=== PATIENT | male | born 1945 | race Caucasian/White ===

== ENCOUNTER → 2020-10-15 12:00 | Outpatient (CLI) | payer MEDICARE, SELFPAY ==
--- NOTE | 2020-10-15 12:05 | DI.RAD.S_ITS ---
PROCEDURE: XR CHEST 2V INDICATIONS: fall 2wk ago, R sided chest wall pain TECHNIQUE: 2 views of the chest were acquired. COMPARISON: None. FINDINGS: Surgical changes and devices: None. Lungs and pleura: An incomplete inspiratory result is noted, causing a crowded appearance to the lung markings. No focal infiltrates are seen. No pneumothorax or significant pleural effusions are seen. Mediastinum: Mediastinal contours are normal. Heart size is normal. Bones and chest wall: No suspicious bony abnormalities. Age-appropriate bony degenerative changes are seen. Accentuated thoracic kyphosis is seen. No displaced fractures can be seen. Soft tissues appear unremarkable. IMPRESSION: No displaced fractures can be seen. No pneumothorax is seen. Dictated by: Francois Courtney M.D. on 10/15/2020 at 11:50 Approved by: Francois Courtney M.D. on 10/15/2020 at 11:51
== END ==
PROVIDERS: PCP Family Medicine; Referring Provider Physician Assistant; Visit Provider Physician Assistant
DX: R07.81 Pleurodynia (principal)
CPT/HCPCS: 71046

== ENCOUNTER → 2021-01-01 10:46 | Outpatient (CLI) | payer MEDICARE, SELFPAY ==
[2021-01-01 11:37] LABS: Add Manual Diff / Slide Review NO; Basophils Absolute Auto 0 /uL (0-100); Basophils Percent Auto 0.4 % (0-2); Eosinophils Absolute Auto 100 /uL (0-450); Eosinophils Percent Auto 1.4 % (2-4); Hematocrit 42.4 % (41-53); Hemoglobin 14.1 g/dL (13.5-17.5); Lymphocytes Absolute Auto 1200 /uL (1100-4500); Lymphocytes Percent Auto 25.9 % (25-40); Mean Corpuscular HGB Conc 33.2 % (30-36); Mean Corpuscular Hemoglobin 31.6 PG (26-34); Mean Corpuscular Volume 95.4 fL (80-100); Monocytes Absolute Auto 700 /uL (0-900); Monocytes Percent Auto 13.9 % (3-14); Neutrophils Absolute Auto 2800 /uL (1500-7000); Neutrophils Percent Auto 58.4 % (50-75); Platelet Count 155 X10^3/uL (150-400); Red Blood Cell Count 4.45 X10^6/uL (4.5-5.9); Red Cell Distribution Width 13.3 % (11.6-14.8); White Blood Cell Count 4.7 X10^3/uL (4.5-11.0)
[2021-01-01 12:25] LABS: Ferritin 21 ng/mL (18-464)
[2021-01-01 12:39] LABS: Vitamin B12 925 pg/mL (239-931)
== END ==
PROVIDERS: PCP Family Medicine; Referring Provider Internal Medicine; Visit Provider Internal Medicine
DX: D64.9 Anemia, unspecified (principal); E53.8 Deficiency of other specified B group vitamins
CPT/HCPCS: 36415; 82607; 82728; 85025

== ENCOUNTER → 2021-05-15 15:39 | Outpatient (CLI) | payer MEDICARE, SELFPAY ==
[2021-05-15 16:40] LABS: Blood Urea Nitrogen 15 mg/dL (9-20); Carbon Dioxide 35 mmol/L (22-32); Chloride 104 mmol/L (98-107); Sodium 139 mmol/L (137-145)
[2021-05-15 16:41] LABS: BUN Creatinine Ratio 19.7 (6-22); Calcium 9.4 mg/dL (8.4-10.2); Estimated Glomerular Filt Rate > 60.0 mL/min (>60); Glucose 103 mg/dL (80-110); HEMOLYSIS < 15 (0-50)
== END ==
PROVIDERS: PCP Family Medicine; Referring Provider Urology; Visit Provider Urology
DX: R31.21 Asymptomatic microscopic hematuria (principal); R39.9 Unspecified symptoms and signs involving the genitourinary system; Z77.22 Contact with and (suspected) exposure to environmental tobacco smoke (acute) (chronic)
CPT/HCPCS: 36415; 51798; 80048; 81002; 99214

== ENCOUNTER → 2021-05-28 13:46 | Outpatient (CLI) | payer MEDICARE, SELFPAY ==
--- NOTE | 2021-05-28 13:47 | DI.CT.S_ITS ---
PROCEDURE: CT ABDOMEN PELVIS WO/W CON INDICATIONS: Asymptomatic microscopic hematuria TECHNIQUE: Optional 5 mm thick noncontrast images acquired from the diaphragm to the symphysis pubis. After the administration of intravenous contrast, 5 mm thick images acquired from the diaphragm to the symphysis pubis after a 10-minute delay. 2 mm thick coronal and sagittal reformats were then performed of the kidneys and ureters. For radiation dose reduction, the following was used: automated exposure control, adjustment of mA and/or kV according to patient size. COMPARISON: None. FINDINGS: Image quality: Excellent. Lung bases: Lung bases are clear. Heart size is normal. Moderate coronary artery calcification. Urinary system: Both kidneys are normal in size, without hydronephrosis or nephrolithiasis on pre-contrast images. No perinephric fat stranding. There is normal bilateral renal enhancement. Renal calyces appear normal in morphology when filled with contrast. Opacified portions of both ureters demonstrate normal caliber. Bladder wall is thickened. There is a nodule in the left lateral wall of the bladder. No calcified bladder stones. Enlarged prostate. Other solid organs: Liver is normal in size and enhancement. Gallbladder is normal . Biliary system is non dilated. Pancreas enhances normally. Spleen is normal in size and enhancement. No adrenal nodules. Peritoneum and bowel: Bowel loops demonstrate normal wall thickness and caliber. Diverticulosis without diverticulitis. There is a moderate amount of stool in colon. No free fluid or air. Nodes and vessels: No retroperitoneal or mesenteric adenopathy by size criteria. Aorta and inferior vena cava are normal in size. Moderate atherosclerosis. Abdominal wall: No ventral hernias. Pelvis: No pathologic free pelvic fluid. No inguinal hernias or adenopathy. Bones: No suspicious bony lesions. No vertebral body compression fractures. IMPRESSION: 1. Bladder wall is irregular. There is a nodular density in the left lateral wall of the bladder. Cannot rule out a uroepithelial neoplasm. Recommend cystoscopy for follow-up evaluation. 2. Enlarged prostate. 3. Diverticulosis without diverticulitis. Dictated by: Kalen Paredes M.D. on 05/28/2021 at 16:50 Approved by: Kalen Paredes M.D. on 05/28/2021 at 16:54
== END ==
PROVIDERS: PCP Family Medicine; Referring Provider Urology; Visit Provider Urology
DX: R31.21 Asymptomatic microscopic hematuria (principal); N40.0 Benign prostatic hyperplasia without lower urinary tract symptoms; N32.9 Bladder disorder, unspecified; K57.90 Diverticulosis of intestine, part unspecified, without perforation or abscess without bleeding; Z77.22 Contact with and (suspected) exposure to environmental tobacco smoke (acute) (chronic)
CPT/HCPCS: 74178; Q9967

== ENCOUNTER → 2021-09-11 11:10 | Outpatient (CLI) | payer MEDICARE, SELFPAY ==
--- NOTE | 2021-09-11 11:12 | DI.RAD.S_ITS ---
PROCEDURE: XR CHEST 2V INDICATIONS: chronic cough TECHNIQUE: 2 views of the chest were acquired. COMPARISON: [facility], CR, XR CHEST 2V, 10/15/2020, 12:36. FINDINGS: Surgical changes and devices: None. Lungs and pleura: Coarsened interstitial markings. No consolidation, pleural effusions or pneumothorax. Mediastinum: Tortuosity of the aorta. Heart size is normal. Bones and chest wall: No suspicious bony abnormalities. Soft tissues appear unremarkable. IMPRESSION: No acute cardiopulmonary abnormality. Dictated by: Ghassan Costa M.D. on 09/11/2021 at 12:14 Approved by: Ghassan Costa M.D. on 09/11/2021 at 12:15
== END ==
PROVIDERS: PCP Family Medicine; Referring Provider Family Medicine; Visit Provider Family Medicine
DX: R05.8 Other specified cough (principal)
CPT/HCPCS: 71046

== ENCOUNTER → 2021-10-12 08:35 | Outpatient (CLI) | payer MEDICARE, SELFPAY ==
[2021-10-12 09:53] LABS: Microalbumin Urine Random < 0.6 mg/dL (0-1.6)
[2021-10-12 09:59] LABS: Add Manual Diff / Slide Review NO; Basophils Absolute Auto 0 /uL (0-100); Basophils Percent Auto 0.5 % (0-2); Eosinophils Absolute Auto 100 /uL (0-450); Eosinophils Percent Auto 1.8 % (2-4); Hematocrit 42.2 % (41-53); Hemoglobin 14.1 g/dL (13.5-17.5); Lymphocytes Absolute Auto 1100 /uL (1100-4500); Lymphocytes Percent Auto 27.3 % (25-40); Mean Corpuscular HGB Conc 33.3 % (30-36); Mean Corpuscular Hemoglobin 31.8 PG (26-34); Mean Corpuscular Volume 95.5 fL (80-100); Monocytes Absolute Auto 500 /uL (0-900); Monocytes Percent Auto 12.6 % (3-14); Neutrophils Absolute Auto 2300 /uL (1500-7000); Neutrophils Percent Auto 57.8 % (50-75); Platelet Count 145 X10^3/uL (150-400); Red Blood Cell Count 4.42 X10^6/uL (4.5-5.9); Red Cell Distribution Width 12.4 % (11.6-14.8); White Blood Cell Count 4.1 X10^3/uL (4.5-11.0)
[2021-10-12 10:19] LABS: Alanine Aminotransferase 27 IU/L (<50); Albumin Globulin Ratio 1.4 (1.0-2.8); Alkaline Phosphatase 53 U/L (38-126); Aspartate Aminotransferase 32 IU/L (17-59); BUN Creatinine Ratio 22.6 (6-22); Bilirubin Total 0.5 mg/dL (0.2-1.3); Blood Urea Nitrogen 19 mg/dL (9-20); Carbon Dioxide 32 mmol/L (22-32); Chloride 104 mmol/L (98-107); Cholesterol 147 mg/dL (140-199); Estimated Glomerular Filt Rate > 60 mL/min (>60); Globulin 2.8 g/dL (1.7-4.1); Glucose 94 mg/dL (80-110); HDL Cholesterol 71 mg/dL (40-60); HEMOLYSIS < 15 (0-50); LDL Cholesterol Calculated 67 mg/dL (<100); Potassium 4.7 mmol/L (3.4-5.1); Sodium 138 mmol/L (137-145); Total Protein 6.8 g/dL (6.3-8.2); Triglycerides 47 mg/dL (35-150)
[2021-10-12 10:40] LABS: TSH w/ Reflex to FT4 1.14 uIU/mL (0.47-4.68)
[2021-10-12 10:41] LABS: Prostate Specific Antigen Scrn 2.67 ng/mL (0.1-4.0)
[2021-10-12 10:59] LABS: Hep C Virus Ab w/Reflex Quant NEGATIVE s/c (NEGATIVE)
== END ==
PROVIDERS: Urology; PCP Family Medicine; Referring Provider Family Medicine; Visit Provider Family Medicine
DX: Z00.00 Encounter for general adult medical examination without abnormal findings (principal); E78.5 Hyperlipidemia, unspecified; Z12.5 Encounter for screening for malignant neoplasm of prostate; I10 Essential (primary) hypertension; K21.9 Gastro-esophageal reflux disease without esophagitis; Z11.59 Encounter for screening for other viral diseases
CPT/HCPCS: 36415; 80053; 80061; 82043; 82570; 84443; 85025; 86803; G0103

== ENCOUNTER → 2021-10-29 11:54 | Outpatient (CLI) | payer MEDICARE, SELFPAY ==
--- NOTE | 2021-10-29 11:55 | DI.RAD.S_ITS ---
PROCEDURE: XR FINGER RT MIN 2V INDICATIONS: Right pinky laceration, swelling TECHNIQUE: AP hand, 2 views of the to finger(s) acquired. COMPARISON: None. FINDINGS: Bones: No fractures or dislocations. No suspicious bony lesions. Fifth PIP joint is held in flexion in the 5th DIP joint is held in extension. Osteoarthritic degenerative changes noted in the 5th DIP joint. Soft tissues: No suspicious soft tissue calcifications. No radiodense foreign body or soft tissue gas. IMPRESSION: No fracture. No acute osseous lesion. If symptoms and/or clinical suspicion for pathology persists, further assessment with repeat radiographs (7-10 days) or advanced imaging (e.g. CT, MRI or bone scan) should be considered. Dictated by: Melania Bo MD, PhD on 10/29/2021 at 12:09 Approved by: Melania Bo MD, PhD on 10/29/2021 at 12:10
== END ==
PROVIDERS: PCP Family Medicine; Referring Provider Physician Assistant; Visit Provider Physician Assistant
DX: S61.216A Laceration without foreign body of right little finger without damage to nail, initial encounter (principal); X58.XXXA Exposure to other specified factors, initial encounter
CPT/HCPCS: 73140

== ENCOUNTER → 2022-02-07 12:17 | Outpatient (CLI) | payer MEDICARE, SELFPAY ==
[2022-02-07 14:19] LABS: Alanine Aminotransferase 28 IU/L (<50); Albumin Globulin Ratio 1.4 (1.0-2.8); Alkaline Phosphatase 53 U/L (38-126); Aspartate Aminotransferase 35 IU/L (17-59); Bilirubin Total 0.3 mg/dL (0.2-1.3); Blood Urea Nitrogen 16 mg/dL (9-20); Calcium 9.1 mg/dL (8.4-10.2); Carbon Dioxide 28 mmol/L (22-32); Chloride 101 mmol/L (98-107); Estimated Glomerular Filt Rate > 60 mL/min (>60); Globulin 2.8 g/dL (1.7-4.1); Glucose 106 mg/dL (80-110); HEMOLYSIS < 15 (0-50); Potassium 4.1 mmol/L (3.4-5.1); Sodium 138 mmol/L (137-145); Total Protein 6.8 g/dL (6.3-8.2)
[2022-02-07 14:56] LABS: Prostate Specific Antigen 3.11 ng/mL (0.10-4.00)
[2022-02-07 15:06] LABS: TSH w/ Reflex to FT4 1.08 uIU/mL (0.47-4.68)
== END ==
PROVIDERS: Urology; PCP Family Medicine; Referring Provider Family Medicine; Visit Provider Family Medicine
DX: R60.0 Localized edema (principal); R97.20 Elevated prostate specific antigen [PSA]; I83.813 Varicose veins of bilateral lower extremities with pain
CPT/HCPCS: 36415; 80053; 84153; 84443

== ENCOUNTER → 2022-02-22 14:30 | Outpatient (CLI) | payer MEDICARE, SELFPAY ==
--- NOTE | 2022-02-22 14:32 | DI.ECHO.S_ITS ---
[place] +---------+ [facility] +---------+ : : [address] : : : : [id number] : : : : Phone: [phone]+ Echocardiogram Report + + :Name: JOSH BURCIAGA Study Date: 02/22/2022 Height: 71 in : :[facility] ReadingLocation: Weight: 180 lb : : Gender: Male BSA: 2.0 m2 : :: 1945 Age: 77 yrs BP: 158/87 mmHg: :Reason For Study: edema : :Ordering Physician: NICOLÁS, : :ESEQUIEL Performed By: Aram Thurston : :Referring: ESEQUIEL MONZON : + + Interpretation Summary Sinus bradycardia during exam Hypertensive during exam The left ventricle is normal in size and wall thickness. The ejection fraction is estimated to be 55-60%. Diastolic parameters suggest a pseudonormalization pattern, consistent with probable elevated filling pressures. The left atrium is moderately dilated. There is mild mitral regurgitation. There is mild aortic regurgitation. There is mild tricuspid regurgitation. The right ventricular systolic pressure is estimated to be at least 32 mmHg based on an estimated right atrial pressure of 8 mm Hg. No prior study for comparison. Procedure: A two-dimensional transthoracic echocardiogram with color flow and Doppler was performed. The study quality was technically adequate. There is no prior echocardiogram noted for this patient. Sinus bradycardia during exam Hypertensive during exam. Left Ventricle: The left ventricle is normal in size and wall thickness. Left ventricular systolic function is normal. The ejection fraction is estimated to be 55-60%. There are no focal wall motion abnormalities. Diastolic parameters suggest a pseudonormalization pattern, consistent with probable elevated filling pressures. Right Ventricle: The right ventricle is normal in size and function. Atria: The left atrium is moderately dilated. Right atrial size is normal. The interatrial septum grossly appears intact with no obvious evidence for an atrial septal defect. The atrial septum is aneurysmal. Mitral Valve: The mitral valve is normal in structure and function. There is mild mitral regurgitation. Aortic Valve: The aortic valve is normal in structure and function. There is mild aortic regurgitation. Tricuspid Valve: The tricuspid valve is normal in structure and function. There is mild tricuspid regurgitation. The right ventricular systolic pressure is estimated to be at least 32 mmHg based on an estimated right atrial pressure of 8 mm Hg. Pulmonic Valve: The pulmonic valve is not well seen, but is grossly normal. There is mild pulmonic regurgitation. Great Vessels: The aortic root is normal size. The ascending aorta is at the upper limits of normal in size. The IVC is dilated (diameter is greater than 2.1 cm) yet it collapses greater than 50% with a sniff. This suggests a right atrial pressure of 8 mm Hg. Pericardium/ Pleura There is no pericardial effusion. There is no pleural effusion. MMode/2D Measurements & Calculations LVIDd: 5.6 cm LVOT diam: 2.3 cm LVIDs: 3.8 cm Ao root diam: 3.9 cm FS: 32.7 % asc Aorta Diam: 3.8 cm IVSd: 1.0 cm LVPWd: 0.84 cm LV ramirez. diameter/BSA (cm/m^2): 2.8 LV sys. diameter/BSA (cm/m^2): 1.9 LA A2 area: 25.3 cm2 RA long axis: 5.5 cm LA A4 area: 27.3 cm2 RA area: 16.6 cm2 LA length (vol): 6.1 cm RA vol: 42.2 ml LA vol: 96.2 ml RA : 20.9 ml/m2 LA vol index: 47.7 ml/m2 IVC diam: 2.3 cm TAPSE: 3.3 cm Doppler Measurements & Calculations Ao V2 max: 159.5 cm/sec LVOT Max Jesus: 119.5 cm/sec Ao V2 mean: 115.6 cm/sec LV V1 max P.7 mmHg Ao max P.2 mmHg LV V1 VTI: 24.5 cm Ao mean P.8 mmHg JEANNIE(I,D): 2.7 cm2 Ao V2 VTI: 37.6 cm JEANNIE(V,D): 3.1 cm2 sev ratio: 0.65 JEANNIE indexed to BSA (cm^2/m^2): 1.3 AI P1/2t: 826.2 msec AI dec slope: 160.0 cm/sec2 MV E max jesus: 82.1 cm/sec TR max jesus: 242.9 cm/sec MV A max jesus: 78.6 cm/sec TR max P.6 mmHg MV E/A: 1.0 Med Peak E' Jesus: 6.8 cm/sec E/E' med: 12.0 Lat Peak E' Jesus: 7.5 cm/sec E/E' lat: 11.0 E/e' average: 11.5 MV dec time: 0.20 sec SV(LVOT): 99.9 ml Reading Physician:GIANNA
== END ==
PROVIDERS: PCP Family Medicine; Referring Provider Family Medicine; Visit Provider Family Medicine
DX: I77.1 Stricture of artery (principal); R60.0 Localized edema; I08.3 Combined rheumatic disorders of mitral, aortic and tricuspid valves
CPT/HCPCS: 93306

== ENCOUNTER → 2022-02-28 11:03 | Outpatient (CLI) | payer MEDICARE, SELFPAY ==
[2022-02-28 12:45] LABS: Add Manual Diff / Slide Review NO; Basophils Absolute Auto 0 /uL (0-100); Basophils Percent Auto 0.5 % (0-2); Eosinophils Absolute Auto 100 /uL (0-450); Eosinophils Percent Auto 1.7 % (2-4); Hematocrit 38.9 % (41-53); Hemoglobin 13.1 g/dL (13.5-17.5); Lymphocytes Absolute Auto 1200 /uL (1100-4500); Lymphocytes Percent Auto 24.8 % (25-40); Mean Corpuscular HGB Conc 33.6 % (30-36); Mean Corpuscular Hemoglobin 31.8 PG (26-34); Mean Corpuscular Volume 94.6 fL (80-100); Monocytes Absolute Auto 600 /uL (0-900); Monocytes Percent Auto 12.4 % (3-14); Neutrophils Absolute Auto 2900 /uL (1500-7000); Neutrophils Percent Auto 60.6 % (50-75); Platelet Count 169 X10^3/uL (150-400); Red Blood Cell Count 4.11 X10^6/uL (4.5-5.9); Red Cell Distribution Width 13.1 % (11.6-14.8); White Blood Cell Count 4.9 X10^3/uL (4.5-11.0)
== END ==
PROVIDERS: PCP Family Medicine; Referring Provider Family Medicine; Visit Provider Family Medicine
DX: D72.819 Decreased white blood cell count, unspecified (principal); R31.21 Asymptomatic microscopic hematuria; R33.9 Retention of urine, unspecified; Z77.22 Contact with and (suspected) exposure to environmental tobacco smoke (acute) (chronic)
CPT/HCPCS: 36415; 51798; 81002; 85025; 99213

== ENCOUNTER → 2022-03-26 10:44 | Outpatient (CLI) | payer MEDICARE, SELFPAY ==
[2022-03-26 11:39] LABS: Add Manual Diff / Slide Review NO; Basophils Absolute Auto 0 /uL (0-100); Basophils Percent Auto 0.5 % (0-2); Eosinophils Absolute Auto 100 /uL (0-450); Eosinophils Percent Auto 1.5 % (2-4); Hematocrit 38.6 % (41-53); Lymphocytes Absolute Auto 1400 /uL (1100-4500); Lymphocytes Percent Auto 28.5 % (25-40); Mean Corpuscular HGB Conc 33.7 % (30-36); Mean Corpuscular Hemoglobin 31.5 PG (26-34); Mean Corpuscular Volume 93.5 fL (80-100); Monocytes Absolute Auto 500 /uL (0-900); Monocytes Percent Auto 10.6 % (3-14); Neutrophils Absolute Auto 2900 /uL (1500-7000); Neutrophils Percent Auto 58.9 % (50-75); Platelet Count 146 X10^3/uL (150-400); Red Blood Cell Count 4.13 X10^6/uL (4.5-5.9); Red Cell Distribution Width 12.9 % (11.6-14.8)
[2022-03-26 12:59] LABS: Ferritin 13 ng/mL (18-464)
[2022-03-26 13:29] LABS: HEMOLYSIS < 15 (0-50); Iron 175 ug/dL (49-181)
[2022-03-26 13:42] LABS: Percent Iron Saturation 55 % (20-50); Total Iron Binding Capacity 319 ug/dL (261-462); Transferrin 244 mg/dL (206-381)
== END ==
PROVIDERS: PCP Family Medicine; Referring Provider Family Medicine; Visit Provider Family Medicine
DX: E61.1 Iron deficiency (principal); E78.5 Hyperlipidemia, unspecified; I10 Essential (primary) hypertension
CPT/HCPCS: 36415; 82728; 83540; 83550; 85025

== ENCOUNTER → 2023-01-17 10:47 | Outpatient (CLI) | payer MEDICARE, SELFPAY ==
--- NOTE | 2023-01-17 10:51 | DI.RAD.S_ITS ---
PROCEDURE: XR WRIST RT MIN 3V INDICATIONS: swelling/hardening to ulnar wrist TECHNIQUE: 4 views of the wrist were acquired. COMPARISON: None. FINDINGS: Bones: No fractures or dislocations. No suspicious bony lesions. Degenerative joint space loss, spurring, and subcortical cystic changes at the distal radioulnar joint and distal ulnar. Mild arthritic changes partially seen at the 1st MCP joint. Scaphoid view: Intact scaphoid. Soft tissues: No suspicious soft tissue calcifications. No chondrocalcinosis. IMPRESSION: 1. Asymmetric focal degenerative change at the distal radioulnar joint and distal ulna. Dictated by: Ambar Rosa M.D. on 01/17/2023 at 14:45 Approved by: Ambar Rosa M.D. on 01/17/2023 at 14:47
[2023-01-17 13:10] LABS: Creatinine Urine Random 25.4 mg/dL
[2023-01-17 13:20] LABS: Microalbumin Urine Random < 0.6 mg/dL (0-1.6)
[2023-01-17 13:52] LABS: Vitamin B12 939 pg/mL (239-931)
== END ==
PROVIDERS: PCP Family Medicine; Referring Provider Physician Assistant; Visit Provider Physician Assistant
DX: M25.431 Effusion, right wrist (principal); R29.898 Other symptoms and signs involving the musculoskeletal system; D50.9 Iron deficiency anemia, unspecified; E78.5 Hyperlipidemia, unspecified; I10 Essential (primary) hypertension; K21.9 Gastro-esophageal reflux disease without esophagitis
CPT/HCPCS: 36415; 73110; 82043; 82570; 82607

== ENCOUNTER 2023-01-21 11:45 | Day surgery (SDC) | payer MEDICARE, SELFPAY ==
--- NOTE | 2023-01-21 | PATH_ITS ---
[facility] Accession Number: [id number] No. of containers..01 Tissue . 01 Material submitted: . esophagus, E-G Junction - GE JUNCTION . 01 Diagnosis: Gastroesophageal Junction, Biopsy: Squamous epithelium with mild reactive features of reflux esophagitis. No glandular mucosa present for evaluation. Intraepithelial eosinophils are not increased. Negative for dysplasia or malignancy. MRV 01/24/2023 1549 Local . 01 Electronically signed: . Joao Muñoz MD, PhD, Pathologist NPI- [id number] . 01 Gross description: . GE JUNCTION: Received in formalin is multiple fragment(s) of zuñiga, soft tissue measuring 0.5 x 0.3 x 0.1 cm in aggregate submitted entirely in 1 cassette(s) /AAY 01/23/2023 0035 Local . 01 Pathologist provided ICD-10: K21.9 . 01 CPT . 685803 Specimen Comment: A courtesy copy of this report has been sent to [phone] Performed at: 01 [facility] [address] [place] [address], [place], [place] [id number] MD Rodo Kwan MD Phone: [phone]
[2023-01-21 12:03] VITALS: BP 151/80; PULSE 50; RESP 16; TEMP 36.3; O2SAT 100; BMI 24.4
[2023-01-21] MEDS: LACTATED RINGERS 1,000 ML 150 ML IV (12:25)
--- NOTE | 2023-01-21 12:38 | PM.HP.1 ---
History of Present Illness History of Present Illness Date Patient Seen: 01/21/23 Time Patient Seen: 12:38 Chief complaint: SDC Narrative: 77-year-old man history of Aguilar's esophagus and anemia who is here for surveillance EGD and colonoscopy. No family history of intestinal malignancy. Takes 81 mg of aspirin daily [facility] Medical History Achilles tendinitis Actinic keratosis Anemia Ankle fracture (~1967) Asymptomatic microscopic hematuria Barretts esophagus Benign prostatic hyperplasia Colon polyps Depression Diverticulosis Dry cough Dupuytren's contracture of hand (07/07/15) Exposure to secondhand smoke Gastric ulcer GERD (gastroesophageal reflux disease) Head injury due to trauma (~1964) Hyperlipidemia Hypertension Incomplete emptying of bladder IT band syndrome Jaw fracture (~1968) Lower extremity edema Lower urinary tract symptoms Plantar warts Psoriasis Skin cancer Tear of meniscus of right knee (07/06/12) Tinnitus 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 with pain Surgical History H/O arthroscopy of left knee (11/27/84) H/O craniotomy (02/05/84) H/O inguinal hernia repair (~1968) H/O vasectomy (~1968) Family History Father Heart attack CAD (coronary artery disease) Mother Congestive heart failure CAD (coronary artery disease) High cholesterol Brother Stroke Brother Cancer Social History marital status: number of children: 2 household members: spouse lives independently: Yes caregiver/support person: No housing: house pets and animals: Yes education level: college occupational status: previously employed leisure activities: exercise, music and other seatbelt use: always helmet use: Yes water heater temp set < 120 deg: Yes working smoke detector in home: Yes fire extinguisher in home: Yes carbon monox detector in home: Yes firearms in home: Yes firearms unloaded and locked: Yes do you feel safe at home: Yes Smoking Status: Former smoker Tobacco: How many years used: 1 alcohol intake: current substance use type: does not use during the past year weight has: remained stable well-balanced diet: daily or most days daily servings fruits/ve-4 caffeine: Yes (~2 drinks daily ) eating out: rarely or never Type(s) of exercise: walking, bicycling and other frequency: daily duration: 30-45 minutes/day Meds Home Medications and Allergies Home Medications Medication Instructions Recorded Confirmed Type aspirin 81 mg tablet,delayed 81 mg PO DAILY 10/15/20 01/21/23 History release (Adult Low Dose Aspirin) calcium [calcium citrate] PO DAILY 05/15/21 01/16/23 History cyanocobalamin (vitamin B-12) PO DAILY 05/15/21 01/16/23 History ferrous sulfate, dried 160 mg (50 160 mg PO DAILY 05/15/21 01/16/23 History mg iron) tablet,extended release (Slow Release Iron) glucosamine sulfate [Glucosamine] PO DAILY 05/15/21 01/16/23 History coenzyme Q10 10 mg capsule (Co 100 mg PO DAILY 08/24/21 01/16/23 History Q-10) pantoprazole 40 mg tablet,delayed See Rx Instructions .Route 05/13/22 01/16/23 Rx release .COMPLEX #90 tabs valsartan 80 mg tablet 80 mg PO BID #180 tabs 05/28/22 01/21/23 Rx tamsulosin 0.4 mg capsule 0.4 mg PO DAILY #30 caps 08/28/22 01/21/23 Rx escitalopram oxalate 5 mg tablet See Rx Instructions .Route 09/09/22 01/16/23 Rx .COMPLEX #90 tabs rosuvastatin 20 mg tablet See Rx Instructions .Route 09/09/22 01/16/23 Rx .COMPLEX #90 tabs sodium,potassium,mag sulfates 17.5 See Rx Instructions PO .COMPLEX 12/10/22 01/21/23 Rx gram-3.13 gram-1.6 gram oral soln #354 mL (Suprep Bowel Prep Kit) Allergies Allergy/AdvReac Type Severity Reaction Status Date / Time NSAIDS (Non-Steroidal AdvReac Mild Stomach Verified 01/16/23 15:59 Anti-Inflamma upset Exam Vital Signs (past 8 hours): - 01/21/23 12:03 Temperature 97.4 F L Pulse Rate 50 L Respiratory Rate 16 Blood Pressure 151/80 H Pulse Oximetry 100 Oxygen Delivery Method Room Air Oxygen Delivery Method Room Air Narrative Exam Narrative: General adult male alert oriented no acute distress Abdomen soft nontender nondistended Assessment & Plan Assessment & Plan narrative: 77-year-old man history of Aguilar's esophagus here for screening esophagoduodenoscopy and colorectal screening. Technical details were discussed. Risks, benefits, alternatives explained. Risks including but not limited to myocardial infarction, aspiration, bleeding, pain, missed lesion, incomplete examination, need for further radiographic studies, colonic perforation, and need for major abdominal surgery were discussed. All questions were answered to their satisfaction, and they are in agreement with this plan.
[2023-01-21 13:19] VITALS: BP 102/63; PULSE 54; RESP 12; O2SAT 95
--- NOTE | 2023-01-21 13:21 | PM.OP.EC ---
Operative Date/Time/Diagnoses Date of procedure: 01/21/23 Time of procedure: 13:21 Pre-op diagnosis: History of Aguilar's esophagus Post-op diagnosis: same Procedure & Clinicians Study performed: Esophagoduodenoscopy and colonoscopy Same procedure as scheduled: Yes Indications: 77-year-old man here for screening colonoscopy and endoscopic screening history of Aguilar's. Surgeon: Nico Warren Procedure Notes Procedure in detail: The history and physical was performed/updated and the patient is ASA class is 2. The procedure was discussed in detail with the patient. Potential risks complications including infection, bleeding, missed diagnosis, perforation, need for surgery, and were explained. Their questions were answered and informed consent was obtained. Patient placed in left lateral decubitus position. Time out was performed. Procedural sedation was administered by Anesthesia. A bite block was placed. the scope was inserted into the mouth and advanced through the esophagus and into the stomach. The stomach was without masses, ulcers or gastritis. The pylorus was intubated and the duodenum was normal to the 2nd portion. The scope was retroflexed within the stomach and there was a hiatal hernia. The scope was withdrawn into the esophagus the Z line was seen at 40 cm from the incisions. There was no dayana Aguilar's esophagitis, esophageal masses or strictures. Biopsy of the GE junction was performed with forceps. Stomach was desufflated and scope removed. Examination began with a thorough inspection of the perianal area there was no evidence of fissures, fistulae, external hemorrhoids or cutaneous malignancy. The colonoscopy scope was then placed into the anal canal and was advanced to the cecum, which was identified by the ileocecal valve, the appendiceal orifice and the confluence of the taenia. The scope was then slowly withdrawn examining colon thoroughly in all directions, irrigating it of any residual stool. Normal colon, mild diverticulosis The patient tolerated the procedure well. They will be discharged once criteria are met. The prep was of good/excellent quality. The withdrawl time was 6 minutes. Specimen(s): other (GE junction) Impression: Normal colonoscopy and upper endoscopy Post-procedure Recommendations: Reflux diet Plan for aftercare: No need for further colonoscopy unless symptomatic Disposition: same day surgery
[2023-01-21 13:22] VITALS: BP 101/59; PULSE 57; RESP 13; TEMP 36.8; O2SAT 95
[2023-01-21 13:34] VITALS: BP 139/71; PULSE 58; RESP 10; O2SAT 100
[2023-01-21 13:39] VITALS: BP 143/78; PULSE 59; RESP 15; TEMP 36.1; O2SAT 97
== END 2023-01-21 14:04 | disposition home or self-care (01) ==
PROVIDERS: PCP Family Medicine; Referring Provider Surgery; Visit Provider Surgery
PROC: 0DJ08ZZ Inspection of Upper Intestinal Tract, Via Natural or Artificial Opening Endoscopic (ICD-10-PCS; CPT 43235; principal; 2023-01-21 12:45)
PROC: 0DJD8ZZ Inspection of Lower Intestinal Tract, Via Natural or Artificial Opening Endoscopic (ICD-10-PCS; CPT 45378; 2023-01-21 12:45)
DX: Z12.11 Encounter for screening for malignant neoplasm of colon (principal); Z87.19 Personal history of other diseases of the digestive system; K21.00 Gastro-esophageal reflux disease with esophagitis, without bleeding
CPT/HCPCS: 43239; G0121

== ENCOUNTER → 2023-04-18 11:59 | Outpatient (CLI) | payer MEDICARE, SELFPAY ==
--- NOTE | 2023-04-18 12:01 | DI.MRI.S_ITS ---
PROCEDURE: MR HEAD/BRAIN WO CON INDICATIONS: hx of brain surgery, bilateral leg weakness TECHNIQUE: Non-contrast axial T1 spin echo, axial T2 fast spin echo, sagittal and axial FLAIR, coronal T2 fast spin echo, axial gradient echo, axial diffusion and ADC through the brain. COMPARISON: None. FINDINGS: Image quality: Excellent. CSF spaces: Ventricles appear symmetric in size and shape. Basal cisterns are patent. No extra-axial fluid collections. Brain: Focal volume loss can be seen involving the anterior medial left frontal lobe. No intracranial bleeds or mass effects. There is cerebral volume loss for age. There are periventricular and deep white matter chronic small vessel ischemic changes. Brainstem appears normal. Diffusion-weighted images show no acute ischemic insults. No chronic ischemic insults. Normal intravascular flow voids are present. Skull and face: Postoperative change can be seen of the calvarium anteriorly. Calvarial bone marrow is normal in signal. Orbits are normal. Note is made of bilateral lens replacements. Sinuses: Extensive frontal sinus disease is seen. Along the superior lateral aspect of the right frontal sinus, there is potential encroachment into the cranial vault, yet this is not well seen. On these images, this area does appear to be covered by thin amount of bone. Mild mucosal thickening is seen elsewhere within the paranasal sinuses. There is at least moderate left mastoid air cell fluid seen. IMPRESSION: Prior postoperative change can be seen anteriorly, with craniotomy. There is focal volume loss seen involving the anterior medial left frontal lobe. The frontal sinuses demonstrate significant opacification. There is potential encroachment towards the cranial vault seen on the right superiorly and laterally. On these images, this does appear to be covered by small amount of bone. - If clinically appropriate, please consider a follow-up CT through the region. Note is made of age-appropriate brain parenchymal volume loss and chronic small vessel ischemic changes. No findings of acute or subacute infarction can be seen. Dictated by: Francois Courtney M.D. on 04/18/2023 at 13:28 Approved by: Francois Courtney M.D. on 04/18/2023 at 13:32
== END ==
PROVIDERS: PCP Family Medicine; Referring Provider Family Medicine; Visit Provider Family Medicine
DX: R29.898 Other symptoms and signs involving the musculoskeletal system (principal); J32.1 Chronic frontal sinusitis; Z87.820 Personal history of traumatic brain injury; Z98.890 Other specified postprocedural states
CPT/HCPCS: 70551

== ENCOUNTER → 2023-08-01 07:01 | Outpatient (CLI) | payer MEDICARE, SELFPAY ==
[2023-08-01 08:56] LABS: Add Manual Diff / Slide Review NO; Basophils Absolute Auto 0 /uL (0-100); Basophils Percent Auto 0.6 % (0-2); Eosinophils Absolute Auto 100 /uL (0-450); Eosinophils Percent Auto 1.9 % (2-4); Hematocrit 38.9 % (41-53); Hemoglobin 12.8 g/dL (13.5-17.5); Lymphocytes Absolute Auto 1000 /uL (1100-4500); Lymphocytes Percent Auto 24.1 % (25-40); Mean Corpuscular HGB Conc 32.9 % (30-36); Mean Corpuscular Hemoglobin 30.2 PG (26-34); Mean Corpuscular Volume 91.5 fL (80-100); Monocytes Absolute Auto 500 /uL (0-900); Monocytes Percent Auto 11.8 % (3-14); Neutrophils Absolute Auto 2500 /uL (1500-7000); Neutrophils Percent Auto 61.6 % (50-75); Platelet Count 155 X10^3/uL (150-400); Red Blood Cell Count 4.24 X10^6/uL (4.5-5.9)
[2023-08-01 09:12] LABS: Erythrocyte Sedimentation Rate 6 MM/HR (0-15)
[2023-08-01 09:21] LABS: Alanine Aminotransferase 23 IU/L (<50); Albumin 3.8 g/dL (3.5-5.0); Albumin Globulin Ratio 1.5 (1.0-2.8); Alkaline Phosphatase 57 U/L (38-126); Aspartate Aminotransferase 28 IU/L (17-59); BUN Creatinine Ratio 26.3 (6-22); Bilirubin Total 0.5 mg/dL (0.2-1.3); Blood Urea Nitrogen 20 mg/dL (9-20); C-Reactive Protein Quant < 0.5 mg/dL (<1.0); Calcium 9.4 mg/dL (8.4-10.2); Carbon Dioxide 33 mmol/L (22-32); Chloride 104 mmol/L (98-107); Cholesterol 140 mg/dL (140-199); Estimated Glomerular Filt Rate > 60 mL/min (>60); Globulin 2.5 g/dL (1.7-4.1); Glucose 90 mg/dL (80-110); HDL Cholesterol 68 mg/dL (40-60); HEMOLYSIS < 15 (0-50); LDL Cholesterol Calculated 63 mg/dL (<100); Potassium 4.5 mmol/L (3.4-5.1); Sodium 136 mmol/L (137-145); Total Protein 6.3 g/dL (6.3-8.2); Triglycerides 45 mg/dL (35-150)
[2023-08-01 09:22] LABS: HEMOLYSIS < 15 (0-50); Iron 91 ug/dL (49-181)
[2023-08-01 09:23] LABS: Rheumatoid Factor < 8.6 IU/mL (<12.0)
[2023-08-01 09:37] LABS: Percent Iron Saturation 28 % (20-50); Total Iron Binding Capacity 322 ug/dL (261-462); Transferrin 245 mg/dL (206-381)
[2023-08-01 09:47] LABS: TSH w/ Reflex to FT4 1.28 uIU/mL (0.47-4.68)
[2023-08-01 09:59] LABS: Ferritin 10 ng/mL (18-464)
[2023-08-02 08:15] LABS: Apolipoprotein B 61 mg/dL (<90)
== END ==
PROVIDERS: Physician Assistant; PCP Family Medicine; Referring Provider Family Medicine; Visit Provider Family Medicine
DX: Z00.00 Encounter for general adult medical examination without abnormal findings (principal); D50.9 Iron deficiency anemia, unspecified; E78.5 Hyperlipidemia, unspecified; Z12.5 Encounter for screening for malignant neoplasm of prostate; I10 Essential (primary) hypertension; K21.9 Gastro-esophageal reflux disease without esophagitis; M25.661 Stiffness of right knee, not elsewhere classified; M25.662 Stiffness of left knee, not elsewhere classified; H69.80 Other specified disorders of Eustachian tube, unspecified ear; R00.1 Bradycardia, unspecified; R53.83 Other fatigue
CPT/HCPCS: 36415; 80053; 80061; 82172; 82728; 83540; 83550; 84443; 85025; 85651; 86140; 86430; G0103

== ENCOUNTER → 2023-09-10 13:42 | Outpatient (CLI) | payer MEDICARE, SELFPAY | LOC: CAR 13:43 | PROVIDERS: PCP Family Medicine; Referring Provider Physician Assistant; Visit Provider Physician Assistant | DX: I49.9 Cardiac arrhythmia, unspecified (principal); R00.1 Bradycardia, unspecified | CPT/HCPCS: 93246 ==

== ENCOUNTER → 2023-12-23 07:03 | Outpatient (CLI) | payer MEDICARE, SELFPAY ==
[2023-12-23 08:02] LABS: Add Manual Diff / Slide Review NO; Basophils Absolute Auto 0 /uL (0-100); Basophils Percent Auto 0.7 % (0-2); Eosinophils Absolute Auto 100 /uL (0-450); Eosinophils Percent Auto 1.4 % (2-4); Hematocrit 41.8 % (41-53); Hemoglobin 13.9 g/dL (13.5-17.5); Lymphocytes Absolute Auto 1200 /uL (1100-4500); Lymphocytes Percent Auto 22.2 % (25-40); Mean Corpuscular HGB Conc 33.4 % (30-36); Mean Corpuscular Hemoglobin 31.1 PG (26-34); Mean Corpuscular Volume 93.1 fL (80-100); Monocytes Absolute Auto 500 /uL (0-900); Monocytes Percent Auto 9.3 % (3-14); Neutrophils Absolute Auto 3400 /uL (1500-7000); Neutrophils Percent Auto 66.4 % (50-75); Platelet Count 160 X10^3/uL (150-400); Red Blood Cell Count 4.49 X10^6/uL (4.5-5.9); Red Cell Distribution Width 13.4 % (11.6-14.8); White Blood Cell Count 5.2 X10^3/uL (4.5-11.0)
[2023-12-23 08:29] LABS: Lactate Dehydrogenase 185 U/L (120-246)
[2023-12-23 09:03] LABS: Prostate Specific Antigen 4.06 ng/mL (0.10-4.00)
== END ==
PROVIDERS: Family Provider Family Medicine; PCP Family Medicine; Referring Provider Family Medicine; Visit Provider Family Medicine
DX: N40.1 Benign prostatic hyperplasia with lower urinary tract symptoms (principal); R39.14 Feeling of incomplete bladder emptying; D50.9 Iron deficiency anemia, unspecified; Z94.81 Bone marrow transplant status; D72.819 Decreased white blood cell count, unspecified
CPT/HCPCS: 36415; 83615; 84153; 85025

== ENCOUNTER 2024-04-21 11:30 | Outpatient (RCR) | payer MEDICARE, SELFPAY ==
--- NOTE | 2024-01-12 17:27 | PT.OIE ---
Current Diagnoses Bilateral primary osteoarthritis of knee (01/12/24) Iliotibial band syndrome, right leg (01/12/24) Iliotibial band syndrome, left leg (01/12/24) Past Medical History (Last Reviewed 01/21/23 @ 12:40 by Nico Warren MD) Achilles tendinitis Actinic keratosis Anemia Ankle fracture (~1967) Asymptomatic microscopic hematuria Barretts esophagus Benign prostatic hyperplasia Colon polyps Depression Diverticulosis Dry cough Dupuytren's contracture of hand (07/07/15) Exposure to secondhand smoke Gastric ulcer GERD (gastroesophageal reflux disease) Head injury due to trauma (~1964) Hyperlipidemia Hypertension Incomplete emptying of bladder IT band syndrome Jaw fracture (~1968) Lower extremity edema Lower urinary tract symptoms Plantar warts Psoriasis Skin cancer Tear of meniscus of right knee (07/06/12) Tinnitus 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 with pain Past Surgical History (Last Reviewed 01/21/23 @ 12:40 by Nico Warren MD) H/O arthroscopy of left knee (11/27/84) H/O craniotomy (02/05/84) H/O inguinal hernia repair (~1968) H/O vasectomy (~1968) Visit Care Team Role Provider Type Maynor Esparza MD Family Provider Physician Primary Care Provider Specialty: Family Practice Address: [address] [place] [address] Email: [email or web address] Kathia Knott PA-C Attending Provider Advanced Marble And Granite Polisher Referring Provider Specialty: Medical Wound Care Address: [address] [place] [address], [facility] Email: [email or web address] Physical Therapy Initial Evaluation PT-OP-A Visit Information Start: 01/08/24 17:21 Freq: Status: Active Protocol: Document 01/12/24 14:36 [facility] (Rec: 01/12/24 15:20 [facility] [id number]) Out-Patient Physical Therapy Visit Information Visit Information Visit Type Initial Evaluation Visit Note 05/14 Visit Start Time 14:36 Visit Number 1 Number of ROLLER GOLD LEAF Visits 0 PT-OP-B Current Condition Start: 01/08/24 17:21 Freq: Status: Active Protocol: Document 01/12/24 14:36 [facility] (Rec: 01/12/24 15:20 [facility] [id number]) Current Condition History of Current Condition Onset Date a couple years Current Complaints B knee and cheung pain and quad pain. weakness History of Current Condition Pt reports significant lower leg pain from knees down. Notes really hard to get up from ground. Up/down stairs, is very weak and put in rails d/t this. it has been progressively getting worse. When goes to sit down on the toilet, almost falls onto the toilet, gets severe pain in inf quad region. Was on a standard height toilet the other day and was worried he couldn't get up. MOved here in the past couple years and no longer goes to gym. He walks about 1/2 mile in the Am but doesn't hink he could do a brisk walk anymore. He does do work on [employer] in house. Used to do yoga, but doens't think he can do enough bending of knee. does plan to try class starting at the end of jan. quick drinking alcohol and coffee and that improved heart palpatations. pt reports some arthritis in knees and meniscus wear down. denies burning, nubmness or tingling. Pt reports has back pain when first get up in the AM but generally, it goes away. only occ if he moves wrong he gets a little pain but it doesn't last. Pt rides his bike but only twice a week and just a mile to get into town. Uses an electric bike. does line dance 1x/week but has to be careful w/turning as it can make knees hurt. still gets 10k step a day around the house when doing work around house. Treatment Goals Patient/Caregiver Goals find exercise to help the best ; be able to get up/down from ground, find ways to dec pain; get back to longer walks, be able to go up/down hills PT-OP-C Subjective Start: 01/08/24 17:21 Freq: Status: Active Protocol: Document 01/12/24 14:36 [facility] (Rec: 01/12/24 15:20 [facility] [id number]) Patient Questionnaires Lower Extremity Functional Scale LEFS Score 35/80 OP-PT Pain Assessment Location lower legs Pain Location Details lat lower legs, superior knee/ distal quad, ant cheung & lat ankle Description With Movement Frequency Constant Pain Aggravating Factors Standing,Stair Climbing, Bending Other Pain Aggravating Factors get up from ground, turning, uphill/downhill, fast walk, stand up Other Pain Alleviating Factors stop the painful activity PT-OP-D Balance Start: 01/08/24 17:21 Freq: Status: Active Protocol: Document 01/12/24 14:36 [facility] (Rec: 01/12/24 15:20 [id number] Balance Tests Single Limb Standing Single Limb- Right 9 sec w/significant UE movement Single Limb- Left 7 sec w/significant UE movement PT-OP-E Functional Tests Start: 01/08/24 17:21 Freq: Status: Active Protocol: Document 01/12/24 14:36 [facility] (Rec: 01/12/24 15:20 [facility] [id number]) Functional Tests 30 Second Sit to Stand Test Score 11 Five Times Sit to Stand Test Score 13 sec PT-OP-G Mobility & Gait Start: 01/08/24 17:21 Freq: Status: Active Protocol: Document 01/12/24 14:36 [facility] (Rec: 01/12/24 15:20 [facility] [id number]) OP Gait Assessment Comments Gait Comments some add of LLE when amb, lat shear of hips when WB PT-OP-J Posture/Palpation/Skin Start: 01/08/24 17:21 Freq: Status: Active Protocol: Document 01/12/24 14:36 [facility] (Rec: 01/12/24 15:20 [id number] Posture Evaluation [facility] Postural Classification System [place] Postural Classifications Posterior/Anterior Lumbar Protective Mechanism Left AP 0 Lumbar Protective Mechanism Right AP 0 Lumbar Protective Mechanism Left PA 2 Lumbar Protective Mechanism Right PA 2 Comments Posture Comments B IR of tibia; L IR femur, inc kyphossi, eqaual greatertoch and iliac crests, R foot toes out at rest more PT-OP-K Range of Motion Start: 01/08/24 17:21 Freq: Status: Active Protocol: Document 01/12/24 14:36 [facility] (Rec: 01/12/24 15:20 [facility] [id number]) Knee Goniometric Range of Motion Knee Right Flexion Active (degrees) 130 Extension Active (degrees) 2 Comments discomfort in cheung w/flex Left Flexion Active (degrees) 134 Hyper-Extension Active 1 Ankle and Foot Goniometric Range of Motion Ankle and Foot ROM Limitations Comments Knee to wall: 2.25 in L 3.75 in R PT-OP-L Special Tests Start: 01/08/24 17:21 Freq: Status: Active Protocol: Document 01/12/24 14:36 [facility] (Rec: 01/12/24 15:20 [facility] [id number]) Special Tests Knee Special Tests Wale Comments B quad tightness ; notes ant thigh pain w/knee to chest SLR Comments WNL Slump Comments neg B PT-OP-M Strength Start: 01/08/24 17:21 Freq: Status: Active Protocol: Document 01/12/24 14:36 [facility] (Rec: 01/12/24 15:20 [facility] [id number]) Hip Strength Hip Manual Muscle Testing Right Flexion (L2) 3+ Fair+ Extension (S1) 3+ Fair+ Abduction 4- Good- Adduction 5 Normal External Rotation 3+ Fair+ Internal Rotation 4+ Good+ Left Flexion (L2) 3+ Fair+ Extension (S1) 4 Good Abduction 3+ Fair+ Adduction 4+ Good+ External Rotation 3+ Fair+ Internal Rotation 4+ Good+ Knee Strength Knee Manual Muscle Testing Right Flexion (S2) 4+ Good+ Extension (L3) 4+ Good+ Left Flexion (S2) 4+ Good+ Extension (L3) 4+ Good+ Ankle/Foot Strength Ankle and Foot Manual Muscle Testing Right Dorsiflexion (L4) 4+ Good+ Plantarflexion (S1) 5 Normal Inversion 4 Good Eversion (S1) 4 Good Left Dorsiflexion (L4) 4+ Good+ Plantarflexion (S1) 5 Normal Inversion 4 Good Eversion (S1) 4 Good Comments 20 heel raises B slightly dec range PT-OP-Q Treatments Start: 01/08/24 17:21 Freq: Status: Active Protocol: Document 01/12/24 14:36 [facility] (Rec: 01/12/24 15:20 [facility] [id number]) Self-Care/Home Management Treatment Education Other Education 8 min: PT-OP-T Assessment and Plan Start: 01/08/24 17:21 Freq: Status: Active Protocol: Document 01/12/24 14:36 [facility] (Rec: 01/12/24 15:20 [facility] [id number]) Physical Therapy Assessment Rehab Potential Rehabilitation Potential Good Evaluation Complexity Number of Personal Factors/Comorbidities 3 or More Number of Body Systems Impaired 4 or More Clinical Presentation at Evaluation Evolving Impairments Impairments Activity Tolerance,Balance, Functional Activities, Functional Mobility,Gait,Pain, Posture,ROM,Soft Tissue Mobility,Strength,Transfers Goals activities Short Term Goal (STG) Pt will be able to get up/down from ground w/o inc pain or significant difficulty STG Duration 02/20 Assistant Speech Language Pathologist Goal (LTG) Pt will be able to go for longer walks (>1.5 mile) that include hills w/o inc pain greater tahn 06/14 LTG Duration 03/23 balance Short Term Goal (STG) Pt will be able to do SLS for at least 10 sec B to show improved stability STG Duration 02/03 Senior Living Goal (LTG) Pt will be able to do SLS for at least 20 sec B to show improved stability LTG Duration 03/23 strength Short Term Goal (STG) Pt will be indep w/HEP STG Duration 02/06 Assistant Speech Language Pathologist Goal (LTG) Pt will score at least 3/5 LPM all planes and at least 4+/5 with all BLE MMT to show improved strength and stability to may daily activities easier LTG Duration 03/23 Assessment Summary Assessment Pt presents w/B knee/ant cheung pain and lower quad pain that has gotten worse over the past years including pt feeling inc weakness in LEs. Pt does have minor dec ROM w/B ankles and knee along w/B quad tightness which may be affecting pain, but does demonstrate ovearll dec balance and strength in LEs B along w/signifcant core weakness. He would benefit from skilled PT to address these deficits and return pt to more yoga and walking regime along w/improve pain during daily life. Physical Therapy Plan Frequency and Duration Frequency of Treatment 1-2x/wk Duration of treatment (weeks) 10 Plan of Care Start Date 01/13/24 Plan of Care End Date 03/23/24 Therapeutic Interventions Therapeutic Interventions Balance Training,Home Exercise Program,Joint Mobilizations, Manual Therapy,Neuromuscular Re-education,Patient/Caregiver Education,Self-Care/Home Management,Soft Tissue Mobilization,Taping, Therapeutic Activities, Therapeutic Exercises Modalities Cold Pack/Ice Massage,Electric Stimulation,Hot Packs, Infrared Therapy,Ultrasound Next Visit Focus/Plan Next Note Type Treatment Note Next Visit Plan review sit to stands (consider add band/wt), SLS; add: banded sidestep, DF against wall, tband inversion/eversion manual to ankle and knee joints in clinic resisted back walk, shuttle balance & futher balance work
--- NOTE | 2024-01-12 17:28 | PT.OPPOC ---
Physical, Occupational & Speech Therapy At [facility] Current Diagnoses Bilateral primary osteoarthritis of knee (01/12/24) Iliotibial band syndrome, right leg (01/12/24) Iliotibial band syndrome, left leg (01/12/24) Visit Care Team Role Provider Type Maynor Esparza MD Family Provider Physician Primary Care Provider Specialty: Family Practice Address: [address] [place] [address], [id number] Email: [email or web address] Kathia Knott PA-C Attending Provider Advanced Slicing Machine Tender Referring Provider Specialty: Medical Wound Care Address: [address] [place] [address], [id number] Email: [email or web address] Plan Of Care PT-OP-B Current Condition Start: 01/08/24 17:21 Freq: Status: Active Protocol: Document 01/12/24 14:36 [facility] (Rec: 01/12/24 15:20 [facility] [id number]) Current Condition History of Current Condition Onset Date a couple years Current Complaints B knee and cheung pain and quad pain. weakness History of Current Condition Pt reports significant lower leg pain from knees down. Notes really hard to get up from ground. Up/down stairs, is very weak and put in rails d/t this. it has been progressively getting worse. When goes to sit down on the toilet, almost falls onto the toilet, gets severe pain in inf quad region. Was on a standard height toilet the other day and was worried he couldn't get up. MOved here in the past couple years and no longer goes to gym. He walks about 1/2 mile in the Am but doesn't hink he could do a brisk walk anymore. He does do work on remodel in house. Used to do yoga, but doens't think he can do enough bending of knee. does plan to try class starting at the end of jan. quick drinking alcohol and coffee and that improved heart palpatations. pt reports some arthritis in knees and meniscus wear down. denies burning, nubmness or tingling. Pt reports has back pain when first get up in the AM but generally, it goes away. only occ if he moves wrong he gets a little pain but it doesn't last. Pt rides his bike but only twice a week and just a mile to get into town. Uses an electric bike. does line dance 1x/week but has to be careful w/turning as it can make knees hurt. still gets 10k step a day around the house when doing work around house. Treatment Goals Patient/Caregiver Goals find exercise to help the best ; be able to get up/down from ground, find ways to dec pain; get back to longer walks, be able to go up/down hills PT-OP-T Assessment and Plan Start: 01/08/24 17:21 Freq: Status: Active Protocol: Document 01/12/24 14:36 [facility] (Rec: 01/12/24 15:20 [facility] [id number]) Physical Therapy Assessment Rehab Potential Rehabilitation Potential Good Evaluation Complexity Number of Personal Factors/Comorbidities 3 or More Number of Body Systems Impaired 4 or More Clinical Presentation at Evaluation Evolving Impairments Impairments Activity Tolerance,Balance, Functional Activities, Functional Mobility,Gait,Pain, Posture,ROM,Soft Tissue Mobility,Strength,Transfers Goals activities Short Term Goal (STG) Pt will be able to get up/down from ground w/o inc pain or significant difficulty STG Duration 02/20 Solid Surface Fabricator Goal (LTG) Pt will be able to go for longer walks (>1.5 mile) that include hills w/o inc pain greater tahn 2/10 LTG Duration 03/23 balance Short Term Goal (STG) Pt will be able to do SLS for at least 10 sec B to show improved stability STG Duration 02/03 [facility] Goal (LTG) Pt will be able to do SLS for at least 20 sec B to show improved stability LTG Duration 03/23 strength Short Term Goal (STG) Pt will be indep w/HEP STG Duration 02/06 Solid Surface Fabricator Goal (LTG) Pt will score at least 3/5 LPM all planes and at least 4+/5 with all BLE MMT to show improved strength and stability to may daily activities easier LTG Duration 03/23 Assessment Summary Assessment Pt presents w/B knee/ant cheung pain and lower quad pain that has gotten worse over the past years including pt feeling inc weakness in LEs. Pt does have minor dec ROM w/B ankles and knee along w/B quad tightness which may be affecting pain, but does demonstrate ovearll dec balance and strength in LEs B along w/signifcant core weakness. He would benefit from skilled PT to address these deficits and return pt to more yoga and walking regime along w/improve pain during daily life. Physical Therapy Plan Frequency and Duration Frequency of Treatment 1-2x/wk Duration of treatment (weeks) 10 Plan of Care Start Date 01/13/24 Plan of Care End Date 03/23/24 Therapeutic Interventions Therapeutic Interventions Balance Training,Home Exercise Program,Joint Mobilizations, Manual Therapy,Neuromuscular Re-education,Patient/Caregiver Education,Self-Care/Home Management,Soft Tissue Mobilization,Taping, Therapeutic Activities, Therapeutic Exercises Modalities Cold Pack/Ice Massage,Electric Stimulation,Hot Packs, Infrared Therapy,Ultrasound Next Visit Focus/Plan Next Note Type Treatment Note Next Visit Plan review sit to stands (consider add band/wt), SLS; add: banded sidestep, DF against wall, tband inversion/eversion manual to ankle and knee joints in clinic resisted back walk, shuttle balance & futher balance work Plan of Care Dates Plan of Care Start Date 01/13/24 Plan of Care End Date 03/23/24 Electronically Signed by: Yanet Engel, PT 01/14/24 1460 If you are in agreement with this Plan of Care, please return a signed and dated copy. I have reviewed this Plan of Care and certify that the skilled therapy services above are required to meet the patient?s needs. Physician Signature Date Printed Name and Credentials Clinical Instructor Signature Printed Name and Credentials
--- NOTE | 2024-01-15 16:49 | PT.OTN ---
Current Diagnoses Bilateral primary osteoarthritis of knee (01/15/24) Iliotibial band syndrome, right leg (01/15/24) Iliotibial band syndrome, left leg (01/15/24) Physical Therapy Treatment Note PT-OP-A Visit Information Start: 01/08/24 17:21 Freq: Status: Active Protocol: Document 01/15/24 14:38 SW (Rec: 01/15/24 15:26 SW [id number]) Out-Patient Physical Therapy Visit Information Visit Information Visit Type Treatment Note Visit Note 06/14 Visit Start Time 14:33 Visit Number 2 Number of WOOD HACKER Visits 1 PT-OP-B Current Condition Start: 01/08/24 17:21 Freq: Status: Active Protocol: Document 01/12/24 14:36 [facility] (Rec: 01/12/24 15:20 [facility] [id number]) Current Condition History of Current Condition Onset Date a couple years Current Complaints B knee and cheung pain and quad pain. weakness History of Current Condition Pt reports significant lower leg pain from knees down. Notes really hard to get up from ground. Up/down stairs, is very weak and put in rails d/t this. it has been progressively getting worse. When goes to sit down on the toilet, almost falls onto the toilet, gets severe pain in inf quad region. Was on a standard height toilet the other day and was worried he couldn't get up. MOved here in the past couple years and no longer goes to gym. He walks about 1/2 mile in the Am but doesn't hink he could do a brisk walk anymore. He does do work on [employer] in house. Used to do yoga, but doens't think he can do enough bending of knee. does plan to try class starting at the end of jan. quick drinking alcohol and coffee and that improved heart palpatations. pt reports some arthritis in knees and meniscus wear down. denies burning, nubmness or tingling. Pt reports has back pain when first get up in the AM but generally, it goes away. only occ if he moves wrong he gets a little pain but it doesn't last. Pt rides his bike but only twice a week and just a mile to get into town. Uses an electric bike. does line dance 1x/week but has to be careful w/turning as it can make knees hurt. still gets 10k step a day around the house when doing work around house. Treatment Goals Patient/Caregiver Goals find exercise to help the best ; be able to get up/down from ground, find ways to dec pain; get back to longer walks, be able to go up/down hills PT-OP-C Subjective Start: 01/08/24 17:21 Freq: Status: Active Protocol: Document 01/15/24 14:38 SW (Rec: 01/15/24 15:26 SW [id number]) OP-PT Subjective Patient Comments Patient Comments Pt reports no new changes. Pt reports has done one of exercises from [facility], forgot the other one. PT-OP-D Balance Start: 01/08/24 17:21 Freq: Status: Active Protocol: Document 01/12/24 14:36 [facility] (Rec: 01/12/24 15:20 [facility] [id number]) Balance Tests Single Limb Standing Single Limb- Right 9 sec w/significant UE movement Single Limb- Left 7 sec w/significant UE movement PT-OP-E Functional Tests Start: 01/08/24 17:21 Freq: Status: Active Protocol: Document 01/12/24 14:36 [facility] (Rec: 01/12/24 15:20 [facility] [id number]) Functional Tests 30 Second Sit to Stand Test Score 11 Five Times Sit to Stand Test Score 13 sec PT-OP-G Mobility & Gait Start: 01/08/24 17:21 Freq: Status: Active Protocol: Document 01/12/24 14:36 [facility] (Rec: 01/12/24 15:20 [facility] [id number]) OP Gait Assessment Comments Gait Comments some add of LLE when amb, lat shear of hips when WB PT-OP-J Posture/Palpation/Skin Start: 01/08/24 17:21 Freq: Status: Active Protocol: Document 01/12/24 14:36 [facility] (Rec: 01/12/24 15:20 [facility] [id number]) Posture Evaluation [place] Postural Classification System [place] Postural Classifications Posterior/Anterior Lumbar Protective Mechanism Left AP 0 Lumbar Protective Mechanism Right AP 0 Lumbar Protective Mechanism Left PA 2 Lumbar Protective Mechanism Right PA 2 Comments Posture Comments B IR of tibia; L IR femur, inc kyphossi, eqaual greatertoch and iliac crests, R foot toes out at rest more PT-OP-K Range of Motion Start: 01/08/24 17:21 Freq: Status: Active Protocol: Document 01/12/24 14:36 [facility] (Rec: 01/12/24 15:20 [facility] [id number]) Knee Goniometric Range of Motion Knee Right Flexion Active (degrees) 130 Extension Active (degrees) 2 Comments discomfort in cheung w/flex Left Flexion Active (degrees) 134 Hyper-Extension Active 1 Ankle and Foot Goniometric Range of Motion Ankle and Foot ROM Limitations Comments Knee to wall: 2.25 in L 3.75 in R PT-OP-L Special Tests Start: 01/08/24 17:21 Freq: Status: Active Protocol: Document 01/12/24 14:36 [facility] (Rec: 01/12/24 15:20 [facility] [id number]) Special Tests Knee Special Tests Wale Comments B quad tightness ; notes ant thigh pain w/knee to chest SLR Comments WNL Slump Comments neg B PT-OP-M Strength Start: 01/08/24 17:21 Freq: Status: Active Protocol: Document 01/12/24 14:36 [facility] (Rec: 01/12/24 15:20 [facility] [id number]) Hip Strength Hip Manual Muscle Testing Right Flexion (L2) 3+ Fair+ Extension (S1) 3+ Fair+ Abduction 4- Good- Adduction 5 Normal External Rotation 3+ Fair+ Internal Rotation 4+ Good+ Left Flexion (L2) 3+ Fair+ Extension (S1) 4 Good Abduction 3+ Fair+ Adduction 4+ Good+ External Rotation 3+ Fair+ Internal Rotation 4+ Good+ Knee Strength Knee Manual Muscle Testing Right Flexion (S2) 4+ Good+ Extension (L3) 4+ Good+ Left Flexion (S2) 4+ Good+ Extension (L3) 4+ Good+ Ankle/Foot Strength Ankle and Foot Manual Muscle Testing Right Dorsiflexion (L4) 4+ Good+ Plantarflexion (S1) 5 Normal Inversion 4 Good Eversion (S1) 4 Good Left Dorsiflexion (L4) 4+ Good+ Plantarflexion (S1) 5 Normal Inversion 4 Good Eversion (S1) 4 Good Comments 20 heel raises B slightly dec range PT-OP-Q Treatments Start: 01/08/24 17:21 Freq: Status: Active Protocol: Document 01/15/24 14:38 (Rec: 01/15/24 15:26 [id number]) Gym Equipment Shuttle Balance Red clips Details Red clips Comments A/P, lateral balance, weight shift Therapeutic Exercises Sitting Exercises Ev/In Sitting Exercise Name Ankle Inversion/Eversion Comments Cues for hip compensation Standing Exercises Side Stepping Standing Exercise Name Resisted Ambulation Side bilateral Resistance Level 2 TB at ankles Equipment Used @ rail Reps/Minutes x 20 ft ea Comments pt reports mm fatigue, denies increase in pain STS Standing Exercise Name STS Side bilateral Resistance Lvl 2 band Equipment Used @ lowered plinth Reps/Minutes x10 w/out band 2x10 w/band Manual Therapy Treatment Consent Patient gave verbal consent for manual Yes treatment Soft Tissue Mobilization STM Body Location Quad, calf Mobilization Type Cross-Friction,Myofascial Release,Rolling,Sustained Pressure Intensity/Depth Moderate Body Position Hooklying Neuro Re-Education Treatment Balance Activities SLS Details SLS PT-OP-T Assessment and Plan Start: 01/08/24 17:21 Freq: Status: Active Protocol: Document 01/15/24 14:38 (Rec: 01/15/24 15:26 [id number]) Physical Therapy Assessment Goals activities Short Term Goal (STG) Pt will be able to get up/down from ground w/o inc pain or significant difficulty STG Duration 02/20 Wool Grader Goal (LTG) Pt will be able to go for longer walks (>1.5 mile) that include hills w/o inc pain greater tahn 2/10 LTG Duration 03/23 balance Short Term Goal (STG) Pt will be able to do SLS for at least 10 sec B to show improved stability STG Duration 02/03 Nursing Home Goal (LTG) Pt will be able to do SLS for at least 20 sec B to show improved stability LTG Duration 03/23 strength Short Term Goal (STG) Pt will be indep w/HEP STG Duration 02/06 Wool Grader Goal (LTG) Pt will score at least 3/5 LPM all planes and at least 4+/5 with all BLE MMT to show improved strength and stability to may daily activities easier LTG Duration 03/23 Assessment Summary Assessment Pt first visit post initital eval. Added bands to STS, pt tolerate well with good feedback. Extra time spent on therex this session for correct execution and pt education during exercises. Issued HEP with Handouts for carryover to home. Initiated balance in PT. Plan to followup on pt tolerance next session and progress as able. Physical Therapy Plan Frequency and Duration Frequency of Treatment 1-2x/wk Duration of treatment (weeks) 10 Plan of Care Start Date 01/13/24 Plan of Care End Date 03/23/24 Therapeutic Interventions Therapeutic Interventions Balance Training,Home Exercise Program,Joint Mobilizations, Manual Therapy,Neuromuscular Re-education,Patient/Caregiver Education,Self-Care/Home Management,Soft Tissue Mobilization,Taping, Therapeutic Activities, Therapeutic Exercises Modalities Cold Pack/Ice Massage,Electric Stimulation,Hot Packs, Infrared Therapy,Ultrasound Next Visit Focus/Plan Next Note Type Treatment Note Next Visit Plan review sit to stands (consider add band/wt), SLS; add: banded sidestep, DF against wall, tband inversion/eversion manual to ankle and knee joints in clinic resisted back walk, shuttle balance & futher balance work
--- NOTE | 2024-01-19 15:19 | PT.OTN ---
Current Diagnoses Bilateral primary osteoarthritis of knee (01/19/24) Iliotibial band syndrome, right leg (01/19/24) Iliotibial band syndrome, left leg (01/19/24) Physical Therapy Treatment Note PT-OP-A Visit Information Start: 01/08/24 17:21 Freq: Status: Active Protocol: Document 01/19/24 13:59 [facility] (Rec: 01/19/24 15:19 [facility] [id number]) Out-Patient Physical Therapy Visit Information Visit Information Visit Type Treatment Note Visit Note 07/12 Visit Start Time 14:31 Visit Stop Time 15:14 Visit Number 3 Number of RECORDS ADMINISTRATOR Visits 0 PT-OP-B Current Condition Start: 01/08/24 17:21 Freq: Status: Active Protocol: Document 01/12/24 14:36 [facility] (Rec: 01/12/24 15:20 [facility] [id number]) Current Condition History of Current Condition Onset Date a couple years Current Complaints B knee and cheung pain and quad pain. weakness History of Current Condition Pt reports significant lower leg pain from knees down. Notes really hard to get up from ground. Up/down stairs, is very weak and put in rails d/t this. it has been progressively getting worse. When goes to sit down on the toilet, almost falls onto the toilet, gets severe pain in inf quad region. Was on a standard height toilet the other day and was worried he couldn't get up. MOved here in the past couple years and no longer goes to gym. He walks about 1/2 mile in the Am but doesn't hink he could do a brisk walk anymore. He does do work on [employer] in house. Used to do yoga, but doens't think he can do enough bending of knee. does plan to try class starting at the end of jan. quick drinking alcohol and coffee and that improved heart palpatations. pt reports some arthritis in knees and meniscus wear down. denies burning, nubmness or tingling. Pt reports has back pain when first get up in the AM but generally, it goes away. only occ if he moves wrong he gets a little pain but it doesn't last. Pt rides his bike but only twice a week and just a mile to get into town. Uses an electric bike. does line dance 1x/week but has to be careful w/turning as it can make knees hurt. still gets 10k step a day around the house when doing work around house. Treatment Goals Patient/Caregiver Goals find exercise to help the best ; be able to get up/down from ground, find ways to dec pain; get back to longer walks, be able to go up/down hills PT-OP-C Subjective Start: 01/08/24 17:21 Freq: Status: Active Protocol: Document 01/19/24 13:59 [facility] (Rec: 01/19/24 15:19 [facility] [id number]) OP-PT Subjective Patient Comments Patient Comments Pt reports compliance w/HEP PT-OP-D Balance Start: 01/08/24 17:21 Freq: Status: Active Protocol: Document 01/12/24 14:36 [facility] (Rec: 01/12/24 15:20 [facility] [id number]) Balance Tests Single Limb Standing Single Limb- Right 9 sec w/significant UE movement Single Limb- Left 7 sec w/significant UE movement PT-OP-E Functional Tests Start: 01/08/24 17:21 Freq: Status: Active Protocol: Document 01/12/24 14:36 [facility] (Rec: 01/12/24 15:20 [facility] [id number]) Functional Tests 30 Second Sit to Stand Test Score 11 Five Times Sit to Stand Test Score 13 sec PT-OP-G Mobility & Gait Start: 01/08/24 17:21 Freq: Status: Active Protocol: Document 01/12/24 14:36 [facility] (Rec: 01/12/24 15:20 [facility] [id number]) OP Gait Assessment Comments Gait Comments some add of LLE when amb, lat shear of hips when WB PT-OP-J Posture/Palpation/Skin Start: 01/08/24 17:21 Freq: Status: Active Protocol: Document 01/12/24 14:36 [facility] (Rec: 01/12/24 15:20 [facility] [id number]) Posture Evaluation [place] Postural Classification System [place] Postural Classifications Posterior/Anterior Lumbar Protective Mechanism Left AP 0 Lumbar Protective Mechanism Right AP 0 Lumbar Protective Mechanism Left PA 2 Lumbar Protective Mechanism Right PA 2 Comments Posture Comments B IR of tibia; L IR femur, inc kyphossi, eqaual greatertoch and iliac crests, R foot toes out at rest more PT-OP-K Range of Motion Start: 01/08/24 17:21 Freq: Status: Active Protocol: Document 01/12/24 14:36 [facility] (Rec: 01/12/24 15:20 [facility] [id number]) Knee Goniometric Range of Motion Knee Right Flexion Active (degrees) 130 Extension Active (degrees) 2 Comments discomfort in cheung w/flex Left Flexion Active (degrees) 134 Hyper-Extension Active 1 Ankle and Foot Goniometric Range of Motion Ankle and Foot ROM Limitations Comments Knee to wall: 2.25 in L 3.75 in R PT-OP-L Special Tests Start: 01/08/24 17:21 Freq: Status: Active Protocol: Document 01/12/24 14:36 [facility] (Rec: 01/12/24 15:20 [facility] [id number]) Special Tests Knee Special Tests Wale Comments B quad tightness ; notes ant thigh pain w/knee to chest SLR Comments WNL Slump Comments neg B PT-OP-M Strength Start: 01/08/24 17:21 Freq: Status: Active Protocol: Document 01/12/24 14:36 [facility] (Rec: 01/12/24 15:20 [facility] [id number]) Hip Strength Hip Manual Muscle Testing Right Flexion (L2) 3+ Fair+ Extension (S1) 3+ Fair+ Abduction 4- Good- Adduction 5 Normal External Rotation 3+ Fair+ Internal Rotation 4+ Good+ Left Flexion (L2) 3+ Fair+ Extension (S1) 4 Good Abduction 3+ Fair+ Adduction 4+ Good+ External Rotation 3+ Fair+ Internal Rotation 4+ Good+ Knee Strength Knee Manual Muscle Testing Right Flexion (S2) 4+ Good+ Extension (L3) 4+ Good+ Left Flexion (S2) 4+ Good+ Extension (L3) 4+ Good+ Ankle/Foot Strength Ankle and Foot Manual Muscle Testing Right Dorsiflexion (L4) 4+ Good+ Plantarflexion (S1) 5 Normal Inversion 4 Good Eversion (S1) 4 Good Left Dorsiflexion (L4) 4+ Good+ Plantarflexion (S1) 5 Normal Inversion 4 Good Eversion (S1) 4 Good Comments 20 heel raises B slightly dec range PT-OP-Q Treatments Start: 01/08/24 17:21 Freq: Status: Active Protocol: Document 01/19/24 13:59 [facility] (Rec: 01/19/24 15:19 [facility] [id number]) Gym Equipment Shuttle Balance Red clips Comments fwd and side:WBOS, NBOS fwd: staggered stance B Therapeutic Exercises Sitting Exercises Ev/In Sitting Exercise Name Ankle Inversion/Eversion Side bilateral Equipment Used L2 Reps/Minutes 15 ea Standing Exercises DF Side bilateral Reps/Minutes 20 Comments back at wall Side Stepping Standing Exercise Name Resisted Ambulation Side bilateral Resistance Level 2 TB at ankles Equipment Used @ rail Reps/Minutes x 20 ft ea STS Standing Exercise Name STS Side bilateral Resistance Lvl 2 band Equipment Used at chair Reps/Minutes 15 w/band Manual Therapy Treatment Consent Patient gave verbal consent for manual Yes treatment Soft Tissue Mobilization ant tib Body Location B Mobilization Type Rolling Intensity/Depth Moderate Body Position Supine STM Body Location quad, ITB B Mobilization Type Myofascial Release,Rolling, Sustained Pressure Intensity/Depth Moderate Body Position Supine Neuro Re-Education Treatment Balance Activities tilt board Comments 1. squats w/facing fwd/back x12 2. squats w/facing lat x12 PT-OP-T Assessment and Plan Start: 01/08/24 17:21 Freq: Status: Active Protocol: Document 01/19/24 13:59 [facility] (Rec: 01/19/24 15:19 [facility] [id number]) Physical Therapy Assessment Goals activities Short Term Goal (STG) Pt will be able to get up/down from ground w/o inc pain or significant difficulty STG Duration 02/20 Ass[employer] Boat Coxswain Goal (LTG) Pt will be able to go for longer walks (>1.5 mile) that include hills w/o inc pain greater tahn 2/10 LTG Duration 03/23 balance Short Term Goal (STG) Pt will be able to do SLS for at least 10 sec B to show improved stability STG Duration 02/03 [facility]sp Goal (LTG) Pt will be able to do SLS for at least 20 sec B to show improved stability LTG Duration 03/23 strength Short Term Goal (STG) Pt will be indep w/HEP STG Duration 02/06 Usp Goal (LTG) Pt will score at least 3/5 LPM all planes and at least 4+/5 with all BLE MMT to show improved strength and stability to may daily activities easier LTG Duration 03/23 Assessment Summary Assessment Pt did well with exercises w/ min cues for form. Set up for inversion/eversion needed and challenged by balance board and squats on tilt board. Inc B ITB and quad and ant tib tension B. Physical Therapy Plan Frequency and Duration Frequency of Treatment 1-2x/wk Duration of treatment (weeks) 10 Plan of Care Start Date 01/13/24 Plan of Care End Date 03/23/24 Next Visit Focus/Plan Next Note Type Treatment Note Next Visit Plan advance balance, leg press, bosu exercises for strength/ balance; knee mobs/STM; consider kt tape
--- NOTE | 2024-01-22 16:20 | PT.OTN ---
Current Diagnoses Bilateral primary osteoarthritis of knee (01/22/24) Iliotibial band syndrome, right leg (01/22/24) Iliotibial band syndrome, left leg (01/22/24) Physical Therapy Treatment Note PT-OP-A Visit Information Start: 01/08/24 17:21 Freq: Status: Active Protocol: Document 01/22/24 12:57 AB (Rec: 01/22/24 16:20 AB [id number]) Out-Patient Physical Therapy Visit Information Visit Information Visit Type Treatment Note Visit Note 08/12 Visit Start Time 13:47 Visit Stop Time 14:31 Visit Number 4 Number of SPIN TANK TENDER Visits 1 PT-OP-B Current Condition Start: 01/08/24 17:21 Freq: Status: Active Protocol: Document 01/12/24 14:36 [facility] (Rec: 01/12/24 15:20 [facility] [id number]) Current Condition History of Current Condition Onset Date a couple years Current Complaints B knee and cheung pain and quad pain. weakness History of Current Condition Pt reports significant lower leg pain from knees down. Notes really hard to get up from ground. Up/down stairs, is very weak and put in rails d/t this. it has been progressively getting worse. When goes to sit down on the toilet, almost falls onto the toilet, gets severe pain in inf quad region. Was on a standard height toilet the other day and was worried he couldn't get up. MOved here in the past couple years and no longer goes to gym. He walks about 1/2 mile in the Am but doesn't hink he could do a brisk walk anymore. He does do work on [employer] in house. Used to do yoga, but doens't think he can do enough bending of knee. does plan to try class starting at the end of jan. quick drinking alcohol and coffee and that improved heart palpatations. pt reports some arthritis in knees and meniscus wear down. denies burning, nubmness or tingling. Pt reports has back pain when first get up in the AM but generally, it goes away. only occ if he moves wrong he gets a little pain but it doesn't last. Pt rides his bike but only twice a week and just a mile to get into town. Uses an electric bike. does line dance 1x/week but has to be careful w/turning as it can make knees hurt. still gets 10k step a day around the house when doing work around house. Treatment Goals Patient/Caregiver Goals find exercise to help the best ; be able to get up/down from ground, find ways to dec pain; get back to longer walks, be able to go up/down hills PT-OP-C Subjective Start: 01/08/24 17:21 Freq: Status: Active Protocol: Document 01/22/24 12:57 AB (Rec: 01/22/24 16:20 AB [id number]) OP-PT Subjective Patient Comments Patient Comments Patient the knees may be getting a little better, but it is small. Patient initates attempt to perform sit to tand without UE use from chair with multiple trials and increased effort to perform task to clear buttocks from chair and stand upright. PT-OP-D Balance Start: 01/08/24 17:21 Freq: Status: Active Protocol: Document 01/12/24 14:36 [facility] (Rec: 01/12/24 15:20 [facility] [id number]) Balance Tests Single Limb Standing Single Limb- Right 9 sec w/significant UE movement Single Limb- Left 7 sec w/significant UE movement PT-OP-E Functional Tests Start: 01/08/24 17:21 Freq: Status: Active Protocol: Document 01/12/24 14:36 [facility] (Rec: 01/12/24 15:20 [facility] [id number]) Functional Tests 30 Second Sit to Stand Test Score 11 Five Times Sit to Stand Test Score 13 sec PT-OP-G Mobility & Gait Start: 01/08/24 17:21 Freq: Status: Active Protocol: Document 01/12/24 14:36 [facility] (Rec: 01/12/24 15:20 [facility] [id number]) OP Gait Assessment Comments Gait Comments some add of LLE when amb, lat shear of hips when WB PT-OP-J Posture/Palpation/Skin Start: 01/08/24 17:21 Freq: Status: Active Protocol: Document 01/12/24 14:36 [facility] (Rec: 01/12/24 15:20 [facility] [id number]) Posture Evaluation [place] Postural Classification System [place] Postural Classifications Posterior/Anterior Lumbar Protective Mechanism Left AP 0 Lumbar Protective Mechanism Right AP 0 Lumbar Protective Mechanism Left PA 2 Lumbar Protective Mechanism Right PA 2 Comments Posture Comments B IR of tibia; L IR femur, inc kyphossi, eqaual greatertoch and iliac crests, R foot toes out at rest more PT-OP-K Range of Motion Start: 01/08/24 17:21 Freq: Status: Active Protocol: Document 01/12/24 14:36 [facility] (Rec: 01/12/24 15:20 [facility] [id number]) Knee Goniometric Range of Motion Knee Right Flexion Active (degrees) 130 Extension Active (degrees) 2 Comments discomfort in cheung w/flex Left Flexion Active (degrees) 134 Hyper-Extension Active 1 Ankle and Foot Goniometric Range of Motion Ankle and Foot ROM Limitations Comments Knee to wall: 2.25 in L 3.75 in R PT-OP-L Special Tests Start: 01/08/24 17:21 Freq: Status: Active Protocol: Document 01/12/24 14:36 [facility] (Rec: 01/12/24 15:20 [facility] [id number]) Special Tests Knee Special Tests Wale Comments B quad tightness ; notes ant thigh pain w/knee to chest SLR Comments WNL Slump Comments neg B PT-OP-M Strength Start: 01/08/24 17:21 Freq: Status: Active Protocol: Document 01/12/24 14:36 [facility] (Rec: 01/12/24 15:20 [facility] [id number]) Hip Strength Hip Manual Muscle Testing Right Flexion (L2) 3+ Fair+ Extension (S1) 3+ Fair+ Abduction 4- Good- Adduction 5 Normal External Rotation 3+ Fair+ Internal Rotation 4+ Good+ Left Flexion (L2) 3+ Fair+ Extension (S1) 4 Good Abduction 3+ Fair+ Adduction 4+ Good+ External Rotation 3+ Fair+ Internal Rotation 4+ Good+ Knee Strength Knee Manual Muscle Testing Right Flexion (S2) 4+ Good+ Extension (L3) 4+ Good+ Left Flexion (S2) 4+ Good+ Extension (L3) 4+ Good+ Ankle/Foot Strength Ankle and Foot Manual Muscle Testing Right Dorsiflexion (L4) 4+ Good+ Plantarflexion (S1) 5 Normal Inversion 4 Good Eversion (S1) 4 Good Left Dorsiflexion (L4) 4+ Good+ Plantarflexion (S1) 5 Normal Inversion 4 Good Eversion (S1) 4 Good Comments 20 heel raises B slightly dec range PT-OP-Q Treatments Start: 01/08/24 17:21 Freq: Status: Active Protocol: Document 01/22/24 12:57 AB (Rec: 01/22/24 16:20 AB [id number]) Therapeutic Exercises Supine Exercises hamstring stretch Supine Exercise Name HEP Side bilateral Reps/Minutes 60 sec X 2 each LE Sitting Exercises seated hip abduction with band Sitting Exercise Name HEP Side bilateral Resistance level 4 blue band Reps/Minutes one minute hold X 1 DF Sitting Exercise Name AROM HEP Side bilateral Reps/Minutes X15 Standing Exercises mini squat Standing Exercise Name HEP Reps/Minutes X10 X 3 Comments Pt ed self tactile cues with hip hinge Calf stretches Standing Exercise Name 1. on ISELA 2. (on stairs HEP) Reps/Minutes one minute each gastroc and soleus on each stretch Manual Therapy Treatment Soft Tissue Mobilization STM Body Location peripatellar area bilaterally and bilateral calf muscles Mobilization Type Cross-Friction,Myofascial Release,Rolling Intensity/Depth Moderate Body Position Supine Comments and prone Taping bilateral knees Treatment Focus unload fat pad bilaterally I peripatellar med andlat 50 % strch proximally Type of Tape kinesiotape Skin Inspection left knee also to improve tracking lat to med 20% Comments Patient ed to remove tape in 3 -5 days or immediately if skin irritation occurs. PT-OP-T Assessment and Plan Start: 01/08/24 17:21 Freq: Status: Active Protocol: Document 01/22/24 12:57 AB (Rec: 01/22/24 16:20 AB [id number]) Physical Therapy Assessment Goals activities Short Term Goal (STG) Pt will be able to get up/down from ground w/o inc pain or significant difficulty STG Duration 02/20 Care Home Goal (LTG) Pt will be able to go for longer walks (>1.5 mile) that include hills w/o inc pain greater tahn 2/10 LTG Duration 03/23 balance Short Term Goal (STG) Pt will be able to do SLS for at least 10 sec B to show improved stability STG Duration 02/03 Technical Intern Goal (LTG) Pt will be able to do SLS for at least 20 sec B to show improved stability LTG Duration 03/23 strength Short Term Goal (STG) Pt will be indep w/HEP STG Duration 02/06 Technical Intern Goal (LTG) Pt will score at least 3/5 LPM all planes and at least 4+/5 with all BLE MMT to show improved strength and stability to may daily activities easier LTG Duration 03/23 Assessment Summary Assessment Patient reports having no pain end of session. Good return demonstration for squat with hip hinge. Physical Therapy Plan Frequency and Duration Frequency of Treatment 1-2x/wk Duration of treatment (weeks) 10 Plan of Care Start Date 01/13/24 Plan of Care End Date 03/23/24 Next Visit Focus/Plan Next Note Type Treatment Note Next Visit Plan advance balance, leg press, bosu exercises for strength/ balance; knee mobs/STM; consider kt tape
--- NOTE | 2024-01-26 16:19 | PT.OTN ---
Current Diagnoses Bilateral primary osteoarthritis of knee (01/26/24) Iliotibial band syndrome, right leg (01/26/24) Iliotibial band syndrome, left leg (01/26/24) Physical Therapy Treatment Note PT-OP-A Visit Information Start: 01/08/24 17:21 Freq: Status: Active Protocol: Document 01/26/24 13:04 AB (Rec: 01/26/24 16:19 AB [id number]) Out-Patient Physical Therapy Visit Information Visit Information Visit Type Treatment Note Visit Note 09/11 Access Code [email or web address] Visit Start Time 13:47 Visit Stop Time 14:31 Visit Number 5 Number of MINING PLANT OPERATOR Visits 2 PT-OP-B Current Condition Start: 01/08/24 17:21 Freq: Status: Active Protocol: Document 01/12/24 14:36 [facility] (Rec: 01/12/24 15:20 [facility] [id number]) Current Condition History of Current Condition Onset Date a couple years Current Complaints B knee and cheung pain and quad pain. weakness History of Current Condition Pt reports significant lower leg pain from knees down. Notes really hard to get up from ground. Up/down stairs, is very weak and put in rails d/t this. it has been progressively getting worse. When goes to sit down on the toilet, almost falls onto the toilet, gets severe pain in inf quad region. Was on a standard height toilet the other day and was worried he couldn't get up. MOved here in the past couple years and no longer goes to gym. He walks about 1/2 mile in the Am but doesn't hink he could do a brisk walk anymore. He does do work on [employer] in house. Used to do yoga, but doens't think he can do enough bending of knee. does plan to try class starting at the end of jan. quick drinking alcohol and coffee and that improved heart palpatations. pt reports some arthritis in knees and meniscus wear down. denies burning, nubmness or tingling. Pt reports has back pain when first get up in the AM but generally, it goes away. only occ if he moves wrong he gets a little pain but it doesn't last. Pt rides his bike but only twice a week and just a mile to get into town. Uses an electric bike. does line dance 1x/week but has to be careful w/turning as it can make knees hurt. still gets 10k step a day around the house when doing work around house. Treatment Goals Patient/Caregiver Goals find exercise to help the best ; be able to get up/down from ground, find ways to dec pain; get back to longer walks, be able to go up/down hills PT-OP-C Subjective Start: 01/08/24 17:21 Freq: Status: Active Protocol: Document 01/26/24 13:04 AB (Rec: 01/26/24 16:19 AB [id number]) OP-PT Subjective Patient Comments Patient Comments Patient reports he only missed one day of the exercise. Patient reports pain post sit to stand after sitting for a while. Patient reports he isn' t sure if the tape helped. PT-OP-D Balance Start: 01/08/24 17:21 Freq: Status: Active Protocol: Document 01/12/24 14:36 [facility] (Rec: 01/12/24 15:20 [facility] [id number]) Balance Tests Single Limb Standing Single Limb- Right 9 sec w/significant UE movement Single Limb- Left 7 sec w/significant UE movement PT-OP-E Functional Tests Start: 01/08/24 17:21 Freq: Status: Active Protocol: Document 01/12/24 14:36 [facility] (Rec: 01/12/24 15:20 [facility] [id number]) Functional Tests 30 Second Sit to Stand Test Score 11 Five Times Sit to Stand Test Score 13 sec PT-OP-G Mobility & Gait Start: 01/08/24 17:21 Freq: Status: Active Protocol: Document 01/12/24 14:36 [facility] (Rec: 01/12/24 15:20 [facility] [id number]) OP Gait Assessment Comments Gait Comments some add of LLE when amb, lat shear of hips when WB PT-OP-J Posture/Palpation/Skin Start: 01/08/24 17:21 Freq: Status: Active Protocol: Document 01/12/24 14:36 [facility] (Rec: 01/12/24 15:20 [facility] [id number]) Posture Evaluation [place] Postural Classification System [place] Postural Classifications Posterior/Anterior Lumbar Protective Mechanism Left AP 0 Lumbar Protective Mechanism Right AP 0 Lumbar Protective Mechanism Left PA 2 Lumbar Protective Mechanism Right PA 2 Comments Posture Comments B IR of tibia; L IR femur, inc kyphossi, eqaual greatertoch and iliac crests, R foot toes out at rest more PT-OP-K Range of Motion Start: 01/08/24 17:21 Freq: Status: Active Protocol: Document 01/12/24 14:36 [facility] (Rec: 01/12/24 15:20 [facility] [id number]) Knee Goniometric Range of Motion Knee Right Flexion Active (degrees) 130 Extension Active (degrees) 2 Comments discomfort in cheung w/flex Left Flexion Active (degrees) 134 Hyper-Extension Active 1 Ankle and Foot Goniometric Range of Motion Ankle and Foot ROM Limitations Comments Knee to wall: 2.25 in L 3.75 in R PT-OP-L Special Tests Start: 01/08/24 17:21 Freq: Status: Active Protocol: Document 01/12/24 14:36 [facility] (Rec: 01/12/24 15:20 [facility] [id number]) Special Tests Knee Special Tests Wale Comments B quad tightness ; notes ant thigh pain w/knee to chest SLR Comments WNL Slump Comments neg B PT-OP-M Strength Start: 01/08/24 17:21 Freq: Status: Active Protocol: Document 01/12/24 14:36 [facility] (Rec: 01/12/24 15:20 [facility] [id number]) Hip Strength Hip Manual Muscle Testing Right Flexion (L2) 3+ Fair+ Extension (S1) 3+ Fair+ Abduction 4- Good- Adduction 5 Normal External Rotation 3+ Fair+ Internal Rotation 4+ Good+ Left Flexion (L2) 3+ Fair+ Extension (S1) 4 Good Abduction 3+ Fair+ Adduction 4+ Good+ External Rotation 3+ Fair+ Internal Rotation 4+ Good+ Knee Strength Knee Manual Muscle Testing Right Flexion (S2) 4+ Good+ Extension (L3) 4+ Good+ Left Flexion (S2) 4+ Good+ Extension (L3) 4+ Good+ Ankle/Foot Strength Ankle and Foot Manual Muscle Testing Right Dorsiflexion (L4) 4+ Good+ Plantarflexion (S1) 5 Normal Inversion 4 Good Eversion (S1) 4 Good Left Dorsiflexion (L4) 4+ Good+ Plantarflexion (S1) 5 Normal Inversion 4 Good Eversion (S1) 4 Good Comments 20 heel raises B slightly dec range PT-OP-Q Treatments Start: 01/08/24 17:21 Freq: Status: Active Protocol: Document 01/26/24 13:04 AB (Rec: 01/26/24 16:19 AB [id number]) Gym Equipment Shuttle Recovery unilateral Details 37# Reps/Time 1X15 each LE bilateral Resistance 75# Reps/Time 2X15 Therapeutic Exercises Supine Exercises hamstring stretch Supine Exercise Name HEP Side bilateral Reps/Minutes 60 sec X 1 each LE Sidelying Exercises clamshell Sidelying Exercise Name HEP Side bilateral Resistance level 2 band Reps/Minutes X15 X 2 Comments Verbal cues and tactile cues Sitting Exercises seated hip abduction with band Sitting Exercise Name HEP Side bilateral Resistance level 5 blue band ( band 5 to HEP Reps/Minutes one minute hold X 1 Standing Exercises Calf stretches Standing Exercise Name 1. on stairs ( HEP) Reps/Minutes one minute each gastroc and soleus on each stretch Manual Therapy Treatment Soft Tissue Mobilization STM Body Location peripatellar area bilaterally and bilateral calf muscles Mobilization Type Cross-Friction,Myofascial Release,Rolling Intensity/Depth Moderate Body Position Supine Comments and prone Neuro Re-Education Treatment Balance Activities BOSU Details 1. flat side squat Reps/Duration X10 Comments CGA hands above rails PT-OP-T Assessment and Plan Start: 01/08/24 17:21 Freq: Status: Active Protocol: Document 01/26/24 13:04 AB (Rec: 01/26/24 16:19 AB [id number]) Physical Therapy Assessment Goals activities Short Term Goal (STG) Pt will be able to get up/down from ground w/o inc pain or significant difficulty STG Duration 02/20 Prison Goal (LTG) Pt will be able to go for longer walks (>1.5 mile) that include hills w/o inc pain greater tahn 2/10 LTG Duration 03/23 balance Short Term Goal (STG) Pt will be able to do SLS for at least 10 sec B to show improved stability STG Duration 02/03 Household Coordinator Goal (LTG) Pt will be able to do SLS for at least 20 sec B to show improved stability LTG Duration 03/23 strength Short Term Goal (STG) Pt will be indep w/HEP STG Duration 02/06 Prison Goal (LTG) Pt will score at least 3/5 LPM all planes and at least 4+/5 with all BLE MMT to show improved strength and stability to may daily activities easier LTG Duration 03/23 Assessment Summary Assessment Patient reports feeling great end of session, reports having no pain. Patient progressed to level 5 band for seated hip abduction activation, and able to perform sidelying clamshell with level 2 band good form. Physical Therapy Plan Frequency and Duration Frequency of Treatment 1-2x/wk Duration of treatment (weeks) 10 Plan of Care Start Date 01/13/24 Plan of Care End Date 03/23/24 Next Visit Focus/Plan Next Note Type Treatment Note Next Visit Plan advance balance, leg press, bosu exercises for strength/ balance focus next session; knee mobs/STM;
--- NOTE | 2024-01-29 14:48 | PT.OTN ---
Current Diagnoses Bilateral primary osteoarthritis of knee (01/29/24) Iliotibial band syndrome, right leg (01/29/24) Iliotibial band syndrome, left leg (01/29/24) Physical Therapy Treatment Note PT-OP-A Visit Information Start: 01/08/24 17:21 Freq: Status: Active Protocol: Document 01/29/24 13:53 [facility] (Rec: 01/29/24 14:48 [facility] [id number]) Out-Patient Physical Therapy Visit Information Visit Information Visit Type Treatment Note Visit Note 10/12 Access Code [id number] Visit Start Time 13:55 Visit Stop Time 14:35 Visit Number 6 Number of HOTBED TRANSFER OPERATOR Visits 0 PT-OP-B Current Condition Start: 01/08/24 17:21 Freq: Status: Active Protocol: Document 01/12/24 14:36 [facility] (Rec: 01/12/24 15:20 [facility] [id number]) Current Condition History of Current Condition Onset Date a couple years Current Complaints B knee and cheung pain and quad pain. weakness History of Current Condition Pt reports significant lower leg pain from knees down. Notes really hard to get up from ground. Up/down stairs, is very weak and put in rails d/t this. it has been progressively getting worse. When goes to sit down on the toilet, almost falls onto the toilet, gets severe pain in inf quad region. Was on a standard height toilet the other day and was worried he couldn't get up. MOved here in the past couple years and no longer goes to gym. He walks about 1/2 mile in the Am but doesn't hink he could do a brisk walk anymore. He does do work on [employer] in house. Used to do yoga, but doens't think he can do enough bending of knee. does plan to try class starting at the end of jan. quick drinking alcohol and coffee and that improved heart palpatations. pt reports some arthritis in knees and meniscus wear down. denies burning, nubmness or tingling. Pt reports has back pain when first get up in the AM but generally, it goes away. only occ if he moves wrong he gets a little pain but it doesn't last. Pt rides his bike but only twice a week and just a mile to get into town. Uses an electric bike. does line dance 1x/week but has to be careful w/turning as it can make knees hurt. still gets 10k step a day around the house when doing work around house. Treatment Goals Patient/Caregiver Goals find exercise to help the best ; be able to get up/down from ground, find ways to dec pain; get back to longer walks, be able to go up/down hills PT-OP-C Subjective Start: 01/08/24 17:21 Freq: Status: Active Protocol: Document 01/29/24 13:53 [facility] (Rec: 01/29/24 14:48 [id number]-PT Subjective Patient Comments Patient Comments Pt reports hasn't had much pain recently. Has some questions on some exercises PT-OP-D Balance Start: 01/08/24 17:21 Freq: Status: Active Protocol: Document 01/12/24 14:36 [facility] (Rec: 01/12/24 15:20 [id number] Balance Tests Single Limb Standing Single Limb- Right 9 sec w/significant UE movement Single Limb- Left 7 sec w/significant UE movement PT-OP-E Functional Tests Start: 01/08/24 17:21 Freq: Status: Active Protocol: Document 01/12/24 14:36 [facility] (Rec: 01/12/24 15:20 [id number] Functional Tests 30 Second Sit to Stand Test Score 11 Five Times Sit to Stand Test Score 13 sec PT-OP-G Mobility & Gait Start: 01/08/24 17:21 Freq: Status: Active Protocol: Document 01/12/24 14:36 [facility] (Rec: 01/12/24 15:20 [facility] [id number]) OP Gait Assessment Comments Gait Comments some add of LLE when amb, lat shear of hips when WB PT-OP-J Posture/Palpation/Skin Start: 01/08/24 17:21 Freq: Status: Active Protocol: Document 01/12/24 14:36 [facility] (Rec: 01/12/24 15:20 [id number] Posture Evaluation [place] Postural Classification System [place] Postural Classifications Posterior/Anterior Lumbar Protective Mechanism Left AP 0 Lumbar Protective Mechanism Right AP 0 Lumbar Protective Mechanism Left PA 2 Lumbar Protective Mechanism Right PA 2 Comments Posture Comments B IR of tibia; L IR femur, inc kyphossi, eqaual greatertoch and iliac crests, R foot toes out at rest more PT-OP-K Range of Motion Start: 01/08/24 17:21 Freq: Status: Active Protocol: Document 01/12/24 14:36 [facility] (Rec: 01/12/24 15:20 [facility] [id number]) Knee Goniometric Range of Motion Knee Right Flexion Active (degrees) 130 Extension Active (degrees) 2 Comments discomfort in cheung w/flex Left Flexion Active (degrees) 134 Hyper-Extension Active 1 Ankle and Foot Goniometric Range of Motion Ankle and Foot ROM Limitations Comments Knee to wall: 2.25 in L 3.75 in R PT-OP-L Special Tests Start: 01/08/24 17:21 Freq: Status: Active Protocol: Document 01/12/24 14:36 [facility] (Rec: 01/12/24 15:20 [facility] [id number]) Special Tests Knee Special Tests Wale Comments B quad tightness ; notes ant thigh pain w/knee to chest SLR Comments WNL Slump Comments neg B PT-OP-M Strength Start: 01/08/24 17:21 Freq: Status: Active Protocol: Document 01/12/24 14:36 [facility] (Rec: 01/12/24 15:20 [facility] [id number]) Hip Strength Hip Manual Muscle Testing Right Flexion (L2) 3+ Fair+ Extension (S1) 3+ Fair+ Abduction 4- Good- Adduction 5 Normal External Rotation 3+ Fair+ Internal Rotation 4+ Good+ Left Flexion (L2) 3+ Fair+ Extension (S1) 4 Good Abduction 3+ Fair+ Adduction 4+ Good+ External Rotation 3+ Fair+ Internal Rotation 4+ Good+ Knee Strength Knee Manual Muscle Testing Right Flexion (S2) 4+ Good+ Extension (L3) 4+ Good+ Left Flexion (S2) 4+ Good+ Extension (L3) 4+ Good+ Ankle/Foot Strength Ankle and Foot Manual Muscle Testing Right Dorsiflexion (L4) 4+ Good+ Plantarflexion (S1) 5 Normal Inversion 4 Good Eversion (S1) 4 Good Left Dorsiflexion (L4) 4+ Good+ Plantarflexion (S1) 5 Normal Inversion 4 Good Eversion (S1) 4 Good Comments 20 heel raises B slightly dec range PT-OP-Q Treatments Start: 01/08/24 17:21 Freq: Status: Active Protocol: Document 01/29/24 13:53 [facility] (Rec: 01/29/24 14:48 [facility] [id number]) Gym Equipment Shuttle Recovery unilateral Details 50# Reps/Time 20 each LE bilateral Resistance 87# Reps/Time 25 Shuttle Balance Red clips Comments fwd and side:WBOS, NBOS fwd: staggered stance B Sport Cord fwd walk Cord/Resistance red Reps/Duration 10 Comments cues posture Therapeutic Exercises Sitting Exercises Ev/In Sitting Exercise Name Ankle Inversion/Eversion Side right Equipment Used L2 Reps/Minutes 8 ea Comments cues for band placement Standing Exercises lunges Standing Exercise Name 1. stationary fwd 2. lat Side bilateral Reps/Minutes 10 ea Neuro Re-Education Treatment Balance Activities BOSU Comments 1. blue side and black side squats x12 2. step ups Blue side x10 B 3. standing balance blue side and black side SLS Details SLS B trials PT-OP-T Assessment and Plan Start: 01/08/24 17:21 Freq: Status: Active Protocol: Document 01/29/24 13:53 [facility] (Rec: 01/29/24 14:48 [facility] [id number]) Physical Therapy Assessment Goals activities Short Term Goal (STG) Pt will be able to get up/down from ground w/o inc pain or significant difficulty STG Duration 02/20 Detention Goal (LTG) Pt will be able to go for longer walks (>1.5 mile) that include hills w/o inc pain greater tahn 2/10 LTG Duration 03/23 balance Short Term Goal (STG) Pt will be able to do SLS for at least 10 sec B to show improved stability STG Duration achieved 01/28 Weights And Measures Inspector Goal (LTG) Pt will be able to do SLS for at least 20 sec B to show improved stability LTG Duration achieved 01/28 strength Short Term Goal (STG) Pt will be indep w/HEP STG Duration 02/06 Detention Goal (LTG) Pt will score at least 3/5 LPM all planes and at least 4+/5 with all BLE MMT to show improved strength and stability to may daily activities easier LTG Duration 03/23 Assessment Summary Assessment Pt reports no pain during session and after review w/ ankle exercises, pt demostrated improved form. pt demonstrating much improved balance w/PT at this time with >30 sec SLS B today Physical Therapy Plan Frequency and Duration Frequency of Treatment 1-2x/wk Duration of treatment (weeks) 10 Plan of Care Start Date 01/13/24 Plan of Care End Date 03/23/24 Next Visit Focus/Plan Next Note Type Treatment Note Next Visit Plan advance balance, inc wt for leg press, bosu exercises for strength/balance focus next session; knee mobs/STM;
--- NOTE | 2024-02-03 11:00 | PT.OTN ---
Current Diagnoses Bilateral primary osteoarthritis of knee (02/03/24) Iliotibial band syndrome, right leg (02/03/24) Iliotibial band syndrome, left leg (02/03/24) Physical Therapy Treatment Note PT-OP-A Visit Information Start: 01/08/24 17:21 Freq: Status: Active Protocol: Document 02/03/24 09:52 [facility] (Rec: 02/03/24 11:00 [facility] [id number]) Out-Patient Physical Therapy Visit Information Visit Information Visit Type Treatment Note Visit Note 11/11 Access Code [id number] Visit Start Time 09:51 Visit Stop Time 10:30 Visit Number 7 Number of ENTERPRISE CLOUD ARCHITECT Visits 0 PT-OP-B Current Condition Start: 01/08/24 17:21 Freq: Status: Active Protocol: Document 01/12/24 14:36 [facility] (Rec: 01/12/24 15:20 [facility] [id number]) Current Condition History of Current Condition Onset Date a couple years Current Complaints B knee and cheung pain and quad pain. weakness History of Current Condition Pt reports significant lower leg pain from knees down. Notes really hard to get up from ground. Up/down stairs, is very weak and put in rails d/t this. it has been progressively getting worse. When goes to sit down on the toilet, almost falls onto the toilet, gets severe pain in inf quad region. Was on a standard height toilet the other day and was worried he couldn't get up. MOved here in the past couple years and no longer goes to gym. He walks about 1/2 mile in the Am but doesn't hink he could do a brisk walk anymore. He does do work on [employer] in house. Used to do yoga, but doens't think he can do enough bending of knee. does plan to try class starting at the end of jan. quick drinking alcohol and coffee and that improved heart palpatations. pt reports some arthritis in knees and meniscus wear down. denies burning, nubmness or tingling. Pt reports has back pain when first get up in the AM but generally, it goes away. only occ if he moves wrong he gets a little pain but it doesn't last. Pt rides his bike but only twice a week and just a mile to get into town. Uses an electric bike. does line dance 1x/week but has to be careful w/turning as it can make knees hurt. still gets 10k step a day around the house when doing work around house. Treatment Goals Patient/Caregiver Goals find exercise to help the best ; be able to get up/down from ground, find ways to dec pain; get back to longer walks, be able to go up/down hills PT-OP-C Subjective Start: 01/08/24 17:21 Freq: Status: Active Protocol: Document 02/03/24 09:52 [facility] (Rec: 02/03/24 11:00 [id number]-PT Subjective Patient Comments Patient Comments Pt reports feels like gettting stronger. Did not do PT exercises this weekend but did do a lot of work on the house and did a long kayak trip. Notes occ feels discomfort and weakness like leg might give out on L lat lower leg PT-OP-D Balance Start: 01/08/24 17:21 Freq: Status: Active Protocol: Document 01/12/24 14:36 [facility] (Rec: 01/12/24 15:20 [id number] Balance Tests Single Limb Standing Single Limb- Right 9 sec w/significant UE movement Single Limb- Left 7 sec w/significant UE movement PT-OP-E Functional Tests Start: 01/08/24 17:21 Freq: Status: Active Protocol: Document 01/12/24 14:36 [facility] (Rec: 01/12/24 15:20 [facility] [id number]) Functional Tests 30 Second Sit to Stand Test Score 11 Five Times Sit to Stand Test Score 13 sec PT-OP-G Mobility & Gait Start: 01/08/24 17:21 Freq: Status: Active Protocol: Document 01/12/24 14:36 [facility] (Rec: 01/12/24 15:20 [facility] [id number]) OP Gait Assessment Comments Gait Comments some add of LLE when amb, lat shear of hips when WB PT-OP-J Posture/Palpation/Skin Start: 01/08/24 17:21 Freq: Status: Active Protocol: Document 01/12/24 14:36 [facility] (Rec: 01/12/24 15:20 [facility] [id number]) Posture Evaluation [place] Postural Classification System [place] Postural Classifications Posterior/Anterior Lumbar Protective Mechanism Left AP 0 Lumbar Protective Mechanism Right AP 0 Lumbar Protective Mechanism Left PA 2 Lumbar Protective Mechanism Right PA 2 Comments Posture Comments B IR of tibia; L IR femur, inc kyphossi, eqaual greatertoch and iliac crests, R foot toes out at rest more PT-OP-K Range of Motion Start: 01/08/24 17:21 Freq: Status: Active Protocol: Document 01/12/24 14:36 [facility] (Rec: 01/12/24 15:20 [facility] [id number]) Knee Goniometric Range of Motion Knee Right Flexion Active (degrees) 130 Extension Active (degrees) 2 Comments discomfort in cheung w/flex Left Flexion Active (degrees) 134 Hyper-Extension Active 1 Ankle and Foot Goniometric Range of Motion Ankle and Foot ROM Limitations Comments Knee to wall: 2.25 in L 3.75 in R PT-OP-L Special Tests Start: 01/08/24 17:21 Freq: Status: Active Protocol: Document 01/12/24 14:36 [facility] (Rec: 01/12/24 15:20 [facility] [id number]) Special Tests Knee Special Tests Wale Comments B quad tightness ; notes ant thigh pain w/knee to chest SLR Comments WNL Slump Comments neg B PT-OP-M Strength Start: 01/08/24 17:21 Freq: Status: Active Protocol: Document 01/12/24 14:36 [facility] (Rec: 01/12/24 15:20 [facility] [id number]) Hip Strength Hip Manual Muscle Testing Right Flexion (L2) 3+ Fair+ Extension (S1) 3+ Fair+ Abduction 4- Good- Adduction 5 Normal External Rotation 3+ Fair+ Internal Rotation 4+ Good+ Left Flexion (L2) 3+ Fair+ Extension (S1) 4 Good Abduction 3+ Fair+ Adduction 4+ Good+ External Rotation 3+ Fair+ Internal Rotation 4+ Good+ Knee Strength Knee Manual Muscle Testing Right Flexion (S2) 4+ Good+ Extension (L3) 4+ Good+ Left Flexion (S2) 4+ Good+ Extension (L3) 4+ Good+ Ankle/Foot Strength Ankle and Foot Manual Muscle Testing Right Dorsiflexion (L4) 4+ Good+ Plantarflexion (S1) 5 Normal Inversion 4 Good Eversion (S1) 4 Good Left Dorsiflexion (L4) 4+ Good+ Plantarflexion (S1) 5 Normal Inversion 4 Good Eversion (S1) 4 Good Comments 20 heel raises B slightly dec range PT-OP-Q Treatments Start: 01/08/24 17:21 Freq: Status: Active Protocol: Document 02/03/24 09:52 [facility] (Rec: 02/03/24 11:00 [facility] [id number]) Gym Equipment Shuttle Recovery unilateral Details 62# Reps/Time 20 ea LE bilateral Resistance 125# Reps/Time 2x15 Shuttle Balance Red clips Details head turns except side NBOS Comments fwd and side:WBOS, NBOS fwd: staggered stance B Manual Therapy Treatment Consent Patient gave verbal consent for manual Yes treatment Joint Mobilizations ankle Comments standing AP tibia and talus FM w/knee bends hip Comments B free the ball hip ER and IR mobs B FM c/r, B inf glide c/r Neuro Re-Education Treatment Balance Activities BOSU Comments 1. blue side and black side squats x15 2. step ups Blue side x10 B 3. standing balance blue side and black side 4. lat step ups blue side x10 B PT-OP-T Assessment and Plan Start: 01/08/24 17:21 Freq: Status: Active Protocol: Document 02/03/24 09:52 [facility] (Rec: 02/03/24 11:00 [facility] [id number]) Physical Therapy Assessment Goals activities Short Term Goal (STG) Pt will be able to get up/down from ground w/o inc pain or significant difficulty STG Duration 02/20 Long-Term Goal (LTG) Pt will be able to go for longer walks (>1.5 mile) that include hills w/o inc pain greater tahn 2/10 LTG Duration 03/23 balance Short Term Goal (STG) Pt will be able to do SLS for at least 10 sec B to show improved stability STG Duration achieved 01/28 Uc Architect Goal (LTG) Pt will be able to do SLS for at least 20 sec B to show improved stability LTG Duration achieved 01/28 strength Short Term Goal (STG) Pt will be indep w/HEP STG Duration 02/06 Long-Term Goal (LTG) Pt will score at least 3/5 LPM all planes and at least 4+/5 with all BLE MMT to show improved strength and stability to may daily activities easier LTG Duration 03/23 Assessment Summary Assessment Pt had improved L DF, B hip IR , ER and flex after manual which should help dec load on knees. Improving balance and overall strength. Physical Therapy Plan Frequency and Duration Frequency of Treatment 1-2x/wk Duration of treatment (weeks) 10 Plan of Care Start Date 01/13/24 Plan of Care End Date 03/23/24 Next Visit Focus/Plan Next Note Type Treatment Note Next Visit Plan advance balance, inc wt for leg press, bosu exercises for strength/balance ,knee mobs/ STM
--- NOTE | 2024-02-06 15:48 | PT.OTN ---
Current Diagnoses Bilateral primary osteoarthritis of knee (02/06/24) Iliotibial band syndrome, right leg (02/06/24) Iliotibial band syndrome, left leg (02/06/24) Physical Therapy Treatment Note PT-OP-A Visit Information Start: 01/08/24 17:21 Freq: Status: Active Protocol: Document 02/06/24 14:28 TS (Rec: 02/06/24 15:47 TS [id number]) Out-Patient Physical Therapy Visit Information Visit Information Visit Type Treatment Note Visit Note 12/12 Access Code [email or web address] Visit Start Time 14:30 Visit Stop Time 15:15 Visit Number 8 Number of FELLED SEAM OPERATOR Visits 1 PT-OP-B Current Condition Start: 01/08/24 17:21 Freq: Status: Active Protocol: Document 01/12/24 14:36 [facility] (Rec: 01/12/24 15:20 [facility] [id number]) Current Condition History of Current Condition Onset Date a couple years Current Complaints B knee and cheung pain and quad pain. weakness History of Current Condition Pt reports significant lower leg pain from knees down. Notes really hard to get up from ground. Up/down stairs, is very weak and put in rails d/t this. it has been progressively getting worse. When goes to sit down on the toilet, almost falls onto the toilet, gets severe pain in inf quad region. Was on a standard height toilet the other day and was worried he couldn't get up. MOved here in the past couple years and no longer goes to gym. He walks about 1/2 mile in the Am but doesn't hink he could do a brisk walk anymore. He does do work on [employer] in house. Used to do yoga, but doens't think he can do enough bending of knee. does plan to try class starting at the end of jan. quick drinking alcohol and coffee and that improved heart palpatations. pt reports some arthritis in knees and meniscus wear down. denies burning, nubmness or tingling. Pt reports has back pain when first get up in the AM but generally, it goes away. only occ if he moves wrong he gets a little pain but it doesn't last. Pt rides his bike but only twice a week and just a mile to get into town. Uses an electric bike. does line dance 1x/week but has to be careful w/turning as it can make knees hurt. still gets 10k step a day around the house when doing work around house. Treatment Goals Patient/Caregiver Goals find exercise to help the best ; be able to get up/down from ground, find ways to dec pain; get back to longer walks, be able to go up/down hills PT-OP-C Subjective Start: 01/08/24 17:21 Freq: Status: Active Protocol: Document 02/06/24 14:28 TS (Rec: 02/06/24 15:47 TS [id number]) OP-PT Subjective Patient Comments Patient Comments Pt reports he has been having muscle soreness for the last couple of days. His soreness is better today. His shins hurt when he has his knees bent. PT-OP-D Balance Start: 01/08/24 17:21 Freq: Status: Active Protocol: Document 01/12/24 14:36 [facility] (Rec: 01/12/24 15:20 [facility] [id number]) Balance Tests Single Limb Standing Single Limb- Right 9 sec w/significant UE movement Single Limb- Left 7 sec w/significant UE movement PT-OP-E Functional Tests Start: 01/08/24 17:21 Freq: Status: Active Protocol: Document 01/12/24 14:36 [facility] (Rec: 01/12/24 15:20 [facility] [id number]) Functional Tests 30 Second Sit to Stand Test Score 11 Five Times Sit to Stand Test Score 13 sec PT-OP-G Mobility & Gait Start: 01/08/24 17:21 Freq: Status: Active Protocol: Document 01/12/24 14:36 [facility] (Rec: 01/12/24 15:20 [facility] [id number]) OP Gait Assessment Comments Gait Comments some add of LLE when amb, lat shear of hips when WB PT-OP-J Posture/Palpation/Skin Start: 01/08/24 17:21 Freq: Status: Active Protocol: Document 01/12/24 14:36 [facility] (Rec: 01/12/24 15:20 [facility] [id number]) Posture Evaluation [place] Postural Classification System [place] Postural Classifications Posterior/Anterior Lumbar Protective Mechanism Left AP 0 Lumbar Protective Mechanism Right AP 0 Lumbar Protective Mechanism Left PA 2 Lumbar Protective Mechanism Right PA 2 Comments Posture Comments B IR of tibia; L IR femur, inc kyphossi, eqaual greatertoch and iliac crests, R foot toes out at rest more PT-OP-K Range of Motion Start: 01/08/24 17:21 Freq: Status: Active Protocol: Document 01/12/24 14:36 [facility] (Rec: 01/12/24 15:20 [facility] [id number]) Knee Goniometric Range of Motion Knee Right Flexion Active (degrees) 130 Extension Active (degrees) 2 Comments discomfort in cheung w/flex Left Flexion Active (degrees) 134 Hyper-Extension Active 1 Ankle and Foot Goniometric Range of Motion Ankle and Foot ROM Limitations Comments Knee to wall: 2.25 in L 3.75 in R PT-OP-L Special Tests Start: 01/08/24 17:21 Freq: Status: Active Protocol: Document 01/12/24 14:36 [facility] (Rec: 01/12/24 15:20 [facility] [id number]) Special Tests Knee Special Tests Wale Comments B quad tightness ; notes ant thigh pain w/knee to chest SLR Comments WNL Slump Comments neg B PT-OP-M Strength Start: 01/08/24 17:21 Freq: Status: Active Protocol: Document 01/12/24 14:36 [facility] (Rec: 01/12/24 15:20 [facility] [id number]) Hip Strength Hip Manual Muscle Testing Right Flexion (L2) 3+ Fair+ Extension (S1) 3+ Fair+ Abduction 4- Good- Adduction 5 Normal External Rotation 3+ Fair+ Internal Rotation 4+ Good+ Left Flexion (L2) 3+ Fair+ Extension (S1) 4 Good Abduction 3+ Fair+ Adduction 4+ Good+ External Rotation 3+ Fair+ Internal Rotation 4+ Good+ Knee Strength Knee Manual Muscle Testing Right Flexion (S2) 4+ Good+ Extension (L3) 4+ Good+ Left Flexion (S2) 4+ Good+ Extension (L3) 4+ Good+ Ankle/Foot Strength Ankle and Foot Manual Muscle Testing Right Dorsiflexion (L4) 4+ Good+ Plantarflexion (S1) 5 Normal Inversion 4 Good Eversion (S1) 4 Good Left Dorsiflexion (L4) 4+ Good+ Plantarflexion (S1) 5 Normal Inversion 4 Good Eversion (S1) 4 Good Comments 20 heel raises B slightly dec range PT-OP-Q Treatments Start: 01/08/24 17:21 Freq: Status: Active Protocol: Document 02/06/24 14:28 TS (Rec: 02/06/24 15:47 TS [id number]) Gym Equipment Shuttle Recovery unilateral Details 62# Reps/Time 20 ea LE, more difficult on L side bilateral Resistance 100# Reps/Time 2x15 Shuttle Balance Red clips Comments fwd and side:WBOS w/ HT's, NBOS fwd: staggered stance B Therapeutic Exercises Standing Exercises Calf stretches Equipment Used ISELA Manual Therapy Treatment Joint Mobilizations Knee Grade II Body Position Hooklying Comments B knees hip Comments B free the ball hip ER and IR mobs B FM c/r, B inf glide c/r Neuro Re-Education Treatment Balance Activities BOSU Comments 1. blue side and black side squats x15 2. step ups Blue side x15 B 3. standing balance blue side and black side 4. lat step ups blue side x10 B PT-OP-T Assessment and Plan Start: 01/08/24 17:21 Freq: Status: Active Protocol: Document 02/06/24 14:28 TS (Rec: 02/06/24 15:47 TS [id number]) Physical Therapy Assessment Goals activities Short Term Goal (STG) Pt will be able to get up/down from ground w/o inc pain or significant difficulty STG Duration 02/20 Wood Boring Machine Operator Goal (LTG) Pt will be able to go for longer walks (>1.5 mile) that include hills w/o inc pain greater tahn 2/10 LTG Duration 03/23 balance Short Term Goal (STG) Pt will be able to do SLS for at least 10 sec B to show improved stability STG Duration achieved 01/28 Wood Boring Machine Operator Goal (LTG) Pt will be able to do SLS for at least 20 sec B to show improved stability LTG Duration achieved 01/28 strength Short Term Goal (STG) Pt will be indep w/HEP STG Duration 02/06 Assisted Goal (LTG) Pt will score at least 3/5 LPM all planes and at least 4+/5 with all BLE MMT to show improved strength and stability to may daily activities easier LTG Duration 03/23 Assessment Summary Assessment Pt reports decreased discomfort in B knees at end of session. Pt does well with shuttle balance SBA/CGA at times. Physical Therapy Plan Next Visit Focus/Plan Next Note Type Treatment Note Next Visit Plan advance balance, inc wt for leg press, bosu exercises for strength/balance ,knee mobs/ STM
--- NOTE | 2024-02-12 17:11 | PT.OTN ---
Current Diagnoses Bilateral primary osteoarthritis of knee (02/12/24) Iliotibial band syndrome, right leg (02/12/24) Iliotibial band syndrome, left leg (02/12/24) Physical Therapy Treatment Note PT-OP-A Visit Information Start: 01/08/24 17:21 Freq: Status: Active Protocol: Document 02/12/24 16:12 [facility] (Rec: 02/12/24 17:11 [facility] [id number]) Out-Patient Physical Therapy Visit Information Visit Information Visit Type Progress Note Visit Note 05/14 Access Code [email or web address] Visit Start Time 16:16 Visit Stop Time 16:58 Visit Number 9 Number of MEDICAL ASSISTING PROGRAM DIRECTOR Visits 0 PT-OP-B Current Condition Start: 01/08/24 17:21 Freq: Status: Active Protocol: Document 01/12/24 14:36 [facility] (Rec: 01/12/24 15:20 [facility] [id number]) Current Condition History of Current Condition Onset Date a couple years Current Complaints B knee and cheung pain and quad pain. weakness History of Current Condition Pt reports significant lower leg pain from knees down. Notes really hard to get up from ground. Up/down stairs, is very weak and put in rails d/t this. it has been progressively getting worse. When goes to sit down on the toilet, almost falls onto the toilet, gets severe pain in inf quad region. Was on a standard height toilet the other day and was worried he couldn't get up. MOved here in the past couple years and no longer goes to gym. He walks about 1/2 mile in the Am but doesn't hink he could do a brisk walk anymore. He does do work on [employer] in house. Used to do yoga, but doens't think he can do enough bending of knee. does plan to try class starting at the end of jan. quick drinking alcohol and coffee and that improved heart palpatations. pt reports some arthritis in knees and meniscus wear down. denies burning, nubmness or tingling. Pt reports has back pain when first get up in the AM but generally, it goes away. only occ if he moves wrong he gets a little pain but it doesn't last. Pt rides his bike but only twice a week and just a mile to get into town. Uses an electric bike. does line dance 1x/week but has to be careful w/turning as it can make knees hurt. still gets 10k step a day around the house when doing work around house. Treatment Goals Patient/Caregiver Goals find exercise to help the best ; be able to get up/down from ground, find ways to dec pain; get back to longer walks, be able to go up/down hills PT-OP-C Subjective Start: 01/08/24 17:21 Freq: Status: Active Protocol: Document 02/12/24 16:12 [facility] (Rec: 02/12/24 17:11 [facility] [id number]) OP-PT Subjective Patient Comments Patient Comments Pt has done 1/2 mile will hills and legs hurt in quads. He is noticing leg pain when laying in bed in quads and lower legs. laying on his back feels the best vs sides. pain may be a little better than it was. Did his sit stands today and initially had ot use arms of chair and did well after more reps w/o hands. He felt better after PT exercises . Getting off the ground still difficult PT-OP-D Balance Start: 01/08/24 17:21 Freq: Status: Active Protocol: Document 01/12/24 14:36 [facility] (Rec: 01/12/24 15:20 [facility] [id number]) Balance Tests Single Limb Standing Single Limb- Right 9 sec w/significant UE movement Single Limb- Left 7 sec w/significant UE movement PT-OP-E Functional Tests Start: 01/08/24 17:21 Freq: Status: Active Protocol: Document 01/12/24 14:36 [facility] (Rec: 01/12/24 15:20 [facility] [id number]) Functional Tests 30 Second Sit to Stand Test Score 11 Five Times Sit to Stand Test Score 13 sec PT-OP-G Mobility & Gait Start: 01/08/24 17:21 Freq: Status: Active Protocol: Document 01/12/24 14:36 [facility] (Rec: 01/12/24 15:20 [facility] [id number]) OP Gait Assessment Comments Gait Comments some add of LLE when amb, lat shear of hips when WB PT-OP-J Posture/Palpation/Skin Start: 01/08/24 17:21 Freq: Status: Active Protocol: Document 02/12/24 16:12 [facility] (Rec: 02/12/24 17:11 [facility] [id number]) Posture Evaluation [facility] Postural Classification System [place] Postural Classifications Posterior/Anterior Lumbar Protective Mechanism Left AP 2 Lumbar Protective Mechanism Right AP 2 Lumbar Protective Mechanism Left PA 3 Lumbar Protective Mechanism Right PA 3 PT-OP-K Range of Motion Start: 01/08/24 17:21 Freq: Status: Active Protocol: Document 01/12/24 14:36 [facility] (Rec: 01/12/24 15:20 [facility] [id number]) Knee Goniometric Range of Motion Knee Right Flexion Active (degrees) 130 Extension Active (degrees) 2 Comments discomfort in cheung w/flex Left Flexion Active (degrees) 134 Hyper-Extension Active 1 Ankle and Foot Goniometric Range of Motion Ankle and Foot ROM Limitations Comments Knee to wall: 2.25 in L 3.75 in R PT-OP-L Special Tests Start: 01/08/24 17:21 Freq: Status: Active Protocol: Document 01/12/24 14:36 [facility] (Rec: 01/12/24 15:20 [facility] [id number]) Special Tests Knee Special Tests Wale Comments B quad tightness ; notes ant thigh pain w/knee to chest SLR Comments WNL Slump Comments neg B PT-OP-M Strength Start: 01/08/24 17:21 Freq: Status: Active Protocol: Document 02/12/24 16:12 [facility] (Rec: 02/12/24 17:11 [facility] [id number]) Hip Strength Hip Manual Muscle Testing Right Flexion (L2) 3+ Fair+ Extension (S1) 4+ Good+ Abduction 4- Good- Adduction 5 Normal External Rotation 4+ Good+ Internal Rotation 5 Normal Left Flexion (L2) 3+ Fair+ Extension (S1) 4+ Good+ Abduction 3+ Fair+ Adduction 4+ Good+ External Rotation 4- Good- Internal Rotation 5 Normal Knee Strength Knee Manual Muscle Testing Right Flexion (S2) 4+ Good+ Extension (L3) 5 Normal Left Flexion (S2) 5 Normal Extension (L3) 4+ Good+ Ankle/Foot Strength Ankle and Foot Manual Muscle Testing Right Dorsiflexion (L4) 5 Normal Plantarflexion (S1) 5 Normal Inversion 4 Good Eversion (S1) 5 Normal Left Dorsiflexion (L4) 4+ Good+ Plantarflexion (S1) 5 Normal Inversion 4 Good Eversion (S1) 5 Normal Comments 20 heel raises B slightly dec range PT-OP-Q Treatments Start: 01/08/24 17:21 Freq: Status: Active Protocol: Document 02/12/24 16:12 [facility] (Rec: 02/12/24 17:11 [facility] [id number]) Therapeutic Exercises Supine Exercises bridge Supine Exercise Name w/march Side bilateral Reps/Minutes 10 isometric Supine Exercise Name DL flex w/DF Side bilateral Reps/Minutes 30 sec Standing Exercises lunges Standing Exercise Name 1. stationary fwd 2. lat Side bilateral Reps/Minutes 12 ea Side Stepping Standing Exercise Name Resisted Ambulation Side bilateral Resistance Level 2 TB at ankles Equipment Used @ rail Reps/Minutes x 20 ft ea STS Standing Exercise Name STS Side bilateral Resistance Lvl 2 band Equipment Used at chair Reps/Minutes 2x10 Comments cues slow and knee position Other Exercises isometrics Other Exercise Name B MMT and LPM Manual Therapy Treatment Consent Patient gave verbal consent for manual Yes treatment Soft Tissue Mobilization STM Body Location B quads Mobilization Type Myofascial Release,Rolling, Strumming Intensity/Depth Moderate Body Position Hooklying Joint Mobilizations Knee Joint B Comments 1. PA tibiofemoral w/APs 2. PA tibfib w/APs PT-OP-T Assessment and Plan Start: 01/08/24 17:21 Freq: Status: Active Protocol: Document 02/12/24 16:12 [facility] (Rec: 02/12/24 17:11 [facility] [id number]) Physical Therapy Assessment Goals activities Short Term Goal (STG) Pt will be able to get up/down from ground w/o inc pain or significant difficulty 02/11-still uses UEs STG Duration 02/20 Care Home Goal (LTG) Pt will be able to go for longer walks (>1.5 mile) that include hills w/o inc pain greater tahn 06/14 02/11-1/2 mile walks max w/ hills recently 07/12 LTG Duration 03/23 balance Short Term Goal (STG) Pt will be able to do SLS for at least 10 sec B to show improved stability STG Duration achieved 01/28 Care Home Goal (LTG) Pt will be able to do SLS for at least 20 sec B to show improved stability LTG Duration achieved 01/28 strength Short Term Goal (STG) Pt will be indep w/HEP 02/11-working on inc consistency-pt feels better after doing STG Duration 02/06 Sales Technician Goal (LTG) Pt will score at least 3/5 LPM all planes and at least 4+/5 with all BLE MMT to show improved strength and stability to may daily activities easier 02/11-improved LTG Duration 03/23 Assessment Summary Assessment Pt improving w/strength overall and balance significantly. He still is having pain with walking and inc activity and would benefit from cont PT to improve this. Physical Therapy Plan Frequency and Duration Frequency of Treatment 1-2x/wk Duration of treatment (weeks) 10 Plan of Care Start Date 01/13/24 Plan of Care End Date 03/23/24 Therapeutic Interventions Therapeutic Interventions Balance Training,Home Exercise Program,Joint Mobilizations, Manual Therapy,Neuromuscular Re-education,Patient/Caregiver Education,Self-Care/Home Management,Soft Tissue Mobilization,Taping, Therapeutic Activities, Therapeutic Exercises Modalities Cold Pack/Ice Massage,Electric Stimulation,Hot Packs, Infrared Therapy,Ultrasound Next Visit Focus/Plan Next Note Type Treatment Note Next Visit Plan advance balance, inc wt for leg press, bosu exercises for strength/balance ,knee mobs/ STM
--- NOTE | 2024-03-17 09:01 | PT.OTN ---
Current Diagnoses Bilateral primary osteoarthritis of knee (03/17/24) Iliotibial band syndrome, right leg (03/17/24) Iliotibial band syndrome, left leg (03/17/24) Physical Therapy Treatment Note PT-OP-A Visit Information Start: 01/08/24 17:21 Freq: Status: Active Protocol: Document 03/17/24 08:12 [facility] (Rec: 03/17/24 09:01 [facility] [id number]) Out-Patient Physical Therapy Visit Information Visit Information Visit Type Progress Note Visit Note 05/14 Access Code [id number] Visit Start Time 08:14 Visit Stop Time 08:54 Visit Number 10 Number of ENTERTAINER OR VARIETY ARTIST Visits 0 PT-OP-B Current Condition Start: 01/08/24 17:21 Freq: Status: Active Protocol: Document 01/12/24 14:36 [facility] (Rec: 01/12/24 15:20 [facility] [id number]) Current Condition History of Current Condition Onset Date a couple years Current Complaints B knee and cheung pain and quad pain. weakness History of Current Condition Pt reports significant lower leg pain from knees down. Notes really hard to get up from ground. Up/down stairs, is very weak and put in rails d/t this. it has been progressively getting worse. When goes to sit down on the toilet, almost falls onto the toilet, gets severe pain in inf quad region. Was on a standard height toilet the other day and was worried he couldn't get up. MOved here in the past couple years and no longer goes to gym. He walks about 1/2 mile in the Am but doesn't hink he could do a brisk walk anymore. He does do work on [employer] in house. Used to do yoga, but doens't think he can do enough bending of knee. does plan to try class starting at the end of jan. quick drinking alcohol and coffee and that improved heart palpatations. pt reports some arthritis in knees and meniscus wear down. denies burning, nubmness or tingling. Pt reports has back pain when first get up in the AM but generally, it goes away. only occ if he moves wrong he gets a little pain but it doesn't last. Pt rides his bike but only twice a week and just a mile to get into town. Uses an electric bike. does line dance 1x/week but has to be careful w/turning as it can make knees hurt. still gets 10k step a day around the house when doing work around house. Treatment Goals Patient/Caregiver Goals find exercise to help the best ; be able to get up/down from ground, find ways to dec pain; get back to longer walks, be able to go up/down hills PT-OP-C Subjective Start: 01/08/24 17:21 Freq: Status: Active Protocol: Document 03/17/24 08:12 [facility] (Rec: 03/17/24 09:01 [facility] [id number]) OP-PT Subjective Patient Comments Patient Comments Pt reports he did have an episode right before his trip down on one knee and felt like knee down felt like it was going to fall off. 2 days later, he went to ER and did xray and gave him 6 pills ( steroids) and it went away. This happened about 2 weeks ago. Pt reports above knee pain is less. PT-OP-D Balance Start: 01/08/24 17:21 Freq: Status: Active Protocol: Document 01/12/24 14:36 [facility] (Rec: 01/12/24 15:20 [facility] [id number]) Balance Tests Single Limb Standing Single Limb- Right 9 sec w/significant UE movement Single Limb- Left 7 sec w/significant UE movement PT-OP-E Functional Tests Start: 01/08/24 17:21 Freq: Status: Active Protocol: Document 01/12/24 14:36 [facility] (Rec: 01/12/24 15:20 [facility] [id number]) Functional Tests 30 Second Sit to Stand Test Score 11 Five Times Sit to Stand Test Score 13 sec PT-OP-G Mobility & Gait Start: 01/08/24 17:21 Freq: Status: Active Protocol: Document 01/12/24 14:36 [facility] (Rec: 01/12/24 15:20 [facility] [id number]) OP Gait Assessment Comments Gait Comments some add of LLE when amb, lat shear of hips when WB PT-OP-J Posture/Palpation/Skin Start: 01/08/24 17:21 Freq: Status: Active Protocol: Document 03/17/24 08:12 [facility] (Rec: 03/17/24 09:01 [facility] [id number]) Posture Evaluation [place] Postural Classification System [place] Postural Classifications Posterior/Anterior Lumbar Protective Mechanism Left AP 2 Lumbar Protective Mechanism Right AP 2 Lumbar Protective Mechanism Left PA 3 Lumbar Protective Mechanism Right PA 3 PT-OP-K Range of Motion Start: 01/08/24 17:21 Freq: Status: Active Protocol: Document 01/12/24 14:36 [facility] (Rec: 01/12/24 15:20 [facility] [id number]) Knee Goniometric Range of Motion Knee Right Flexion Active (degrees) 130 Extension Active (degrees) 2 Comments discomfort in cheung w/flex Left Flexion Active (degrees) 134 Hyper-Extension Active 1 Ankle and Foot Goniometric Range of Motion Ankle and Foot ROM Limitations Comments Knee to wall: 2.25 in L 3.75 in R PT-OP-L Special Tests Start: 01/08/24 17:21 Freq: Status: Active Protocol: Document 01/12/24 14:36 [facility] (Rec: 01/12/24 15:20 [facility] [id number]) Special Tests Knee Special Tests Wale Comments B quad tightness ; notes ant thigh pain w/knee to chest SLR Comments WNL Slump Comments neg B PT-OP-M Strength Start: 01/08/24 17:21 Freq: Status: Active Protocol: Document 03/17/24 08:12 [facility] (Rec: 03/17/24 09:01 [facility] [id number]) Hip Strength Hip Manual Muscle Testing Right Flexion (L2) 4- Good- Extension (S1) 4 Good Abduction 4 Good Adduction 5 Normal External Rotation 5 Normal Internal Rotation 5 Normal Left Flexion (L2) 4- Good- Extension (S1) 4+ Good+ Abduction 4- Good- Adduction 5 Normal External Rotation 5 Normal Internal Rotation 5 Normal Knee Strength Knee Manual Muscle Testing Right Flexion (S2) 5 Normal Extension (L3) 5 Normal Left Flexion (S2) 5 Normal Extension (L3) 5 Normal Ankle/Foot Strength Ankle and Foot Manual Muscle Testing Right Dorsiflexion (L4) 5 Normal Plantarflexion (S1) 5 Normal Inversion 4+ Good+ Eversion (S1) 5 Normal Left Dorsiflexion (L4) 5 Normal Plantarflexion (S1) 5 Normal Inversion 4+ Good+ Eversion (S1) 5 Normal Comments 20 heel raises B PT-OP-Q Treatments Start: 01/08/24 17:21 Freq: Status: Active Protocol: Document 03/17/24 08:12 [facility] (Rec: 03/17/24 09:01 [facility] [id number]) Therapeutic Exercises Supine Exercises isometric Supine Exercise Name DL flex w/DF Side bilateral Reps/Minutes 30 secx2 Standing Exercises step ups Standing Exercise Name w/alt march Side bilateral Equipment Used 8 in Reps/Minutes 15 Comments cues TKE SL Standing Exercise Name 3 pt tap (fwd, back, lat) Side bilateral Reps/Minutes 10 ea lunges Standing Exercise Name 1. stationary fwd 2. lat Side bilateral Reps/Minutes 12 ea mini squat Standing Exercise Name tap to chair Side bilateral Equipment Used 7lbs in each hand Reps/Minutes 15 Side Stepping Standing Exercise Name sidestep Side bilateral Resistance L2 then 3 at aknles Reps/Minutes 20 ft ea resistance Comments cues trunk Other Exercises kneel Other Exercise Name alt kneel to 1/2 kneel Side bilateral Reps/Minutes 12 ea PT-OP-T Assessment and Plan Start: 01/08/24 17:21 Freq: Status: Active Protocol: Document 03/17/24 08:12 [facility] (Rec: 03/17/24 09:01 [facility] [id number]) Physical Therapy Assessment Goals activities Short Term Goal (STG) Pt will be able to get up/down from ground w/o inc pain or significant difficulty 02/11-still uses UEs 03/17-can but is challenging STG Duration 04/18 Cq Developer Goal (LTG) Pt will be able to go for longer walks (>1.5 mile) that include hills w/o inc pain greater tahn 06/14 02/11-1/2 mile walks max w/ hills recently 07/12 03/17-1-2 miles piror to trip (needs to return) LTG Duration 1/2 balance Short Term Goal (STG) Pt will be able to do SLS for at least 10 sec B to show improved stability STG Duration achieved 01/28 Cq Developer Goal (LTG) Pt will be able to do SLS for at least 20 sec B to show improved stability LTG Duration achieved 01/28 strength Short Term Goal (STG) Pt will be indep w/HEP 02/11-working on inc consistency-pt feels better after doing STG Duration achieved but advancing as able Cq Developer Goal (LTG) Pt will score at least 3/5 LPM all planes and at least 4+/5 with all BLE MMT to show improved strength and stability to may daily activities easier 02/11-improved 03/17-improved LTG Duration 05/07 Assessment Summary Assessment Pt making excellent progress w /PT and is showing much dec pain in sup knee region and much improved strength. Still shows some dec strength overall and would benefit from cont PT to return to normal function. Physical Therapy Plan Frequency and Duration Frequency of Treatment 1x/wk Duration of treatment (weeks) 8 Plan of Care Start Date 03/17/24 Plan of Care End Date 05/20/24 Therapeutic Interventions Therapeutic Interventions Balance Training,Home Exercise Program,Joint Mobilizations, Manual Therapy,Neuromuscular Re-education,Patient/Caregiver Education,Self-Care/Home Management,Soft Tissue Mobilization,Taping, Therapeutic Activities, Therapeutic Exercises Modalities Cold Pack/Ice Massage,Electric Stimulation,Hot Packs, Infrared Therapy,Ultrasound Next Visit Focus/Plan Next Note Type Treatment Note Next Visit Plan advance balance, inc wt for leg press, bosu exercises for strength/balance ,knee mobs/ STM
--- NOTE | 2024-03-17 09:01 | PT.OPPOC ---
Physical, Occupational & Speech Therapy At [facility] Current Diagnoses Bilateral primary osteoarthritis of knee (03/17/24) Iliotibial band syndrome, right leg (03/17/24) Iliotibial band syndrome, left leg (03/17/24) Visit Care Team Role Provider Type Maynor Esparza MD Family Provider Physician Primary Care Provider Specialty: Family Practice Address: [address] [place] [address], [id number] Email: [email or web address] Kathia Knott PA-C Attending Provider Advanced Stack Matcher Referring Provider Specialty: Medical Wound Care Address: [address] [place] [address], [id number] Email: [email or web address] Plan Of Care PT-OP-B Current Condition Start: 01/08/24 17:21 Freq: Status: Active Protocol: Document 01/12/24 14:36 [facility] (Rec: 01/12/24 15:20 [facility] [id number]) Current Condition History of Current Condition Onset Date a couple years Current Complaints B knee and cheung pain and quad pain. weakness History of Current Condition Pt reports significant lower leg pain from knees down. Notes really hard to get up from ground. Up/down stairs, is very weak and put in rails d/t this. it has been progressively getting worse. When goes to sit down on the toilet, almost falls onto the toilet, gets severe pain in inf quad region. Was on a standard height toilet the other day and was worried he couldn't get up. MOved here in the past couple years and no longer goes to gym. He walks about 1/2 mile in the Am but doesn't hink he could do a brisk walk anymore. He does do work on remodel in house. Used to do yoga, but doens't think he can do enough bending of knee. does plan to try class starting at the end of jan. quick drinking alcohol and coffee and that improved heart palpatations. pt reports some arthritis in knees and meniscus wear down. denies burning, nubmness or tingling. Pt reports has back pain when first get up in the AM but generally, it goes away. only occ if he moves wrong he gets a little pain but it doesn't last. Pt rides his bike but only twice a week and just a mile to get into town. Uses an electric bike. does line dance 1x/week but has to be careful w/turning as it can make knees hurt. still gets 10k step a day around the house when doing work around house. Treatment Goals Patient/Caregiver Goals find exercise to help the best ; be able to get up/down from ground, find ways to dec pain; get back to longer walks, be able to go up/down hills PT-OP-T Assessment and Plan Start: 01/08/24 17:21 Freq: Status: Active Protocol: Document 03/17/24 08:12 [facility] (Rec: 03/17/24 09:01 [facility] [id number]) Physical Therapy Assessment Goals activities Short Term Goal (STG) Pt will be able to get up/down from ground w/o inc pain or significant difficulty 02/11-still uses UEs 03/17-can but is challenging STG Duration 04/18 Subway Train Operator Goal (LTG) Pt will be able to go for longer walks (>1.5 mile) that include hills w/o inc pain greater tahn 06/14 02/11-1/2 mile walks max w/ hills recently 07/12 03/17-1-2 miles [place] to trip (needs to return) LTG Duration 1/ balance Short Term Goal (STG) Pt will be able to do SLS for at least 10 sec B to show improved stability STG Duration achieved 01/28 Subway Train Operator Goal (LTG) Pt will be able to do SLS for at least 20 sec B to show improved stability LTG Duration achieved 01/28 strength Short Term Goal (STG) Pt will be indep w/HEP 02/11-working on inc consistency-pt feels better after doing STG Duration achieved but advancing as able Fdc Goal (LTG) Pt will score at least 3/5 LPM all planes and at least 4+/5 with all BLE MMT to show improved strength and stability to may daily activities easier 02/11-improved 03/17-improved LTG Duration 1/3 Assessment Summary Assessment Pt making excellent progress w /PT and is showing much dec pain in sup knee region and much improved strength. Still shows some dec strength overall and would benefit from cont PT to return to normal function. Physical Therapy Plan Frequency and Duration Frequency of Treatment 1x/wk Duration of treatment (weeks) 8 Plan of Care Start Date 03/17/24 Plan of Care End Date 05/20/24 Therapeutic Interventions Therapeutic Interventions Balance Training,Home Exercise Program,Joint Mobilizations, Manual Therapy,Neuromuscular Re-education,Patient/Caregiver Education,Self-Care/Home Management,Soft Tissue Mobilization,Taping, Therapeutic Activities, Therapeutic Exercises Modalities Cold Pack/Ice Massage,Electric Stimulation,Hot Packs, Infrared Therapy,Ultrasound Next Visit Focus/Plan Next Note Type Treatment Note Next Visit Plan advance balance, inc wt for leg press, bosu exercises for strength/balance ,knee mobs/ STM Plan of Care Dates Plan of Care Start Date 03/17/24 Plan of Care End Date 05/20/24 Electronically Signed by: Yanet Engel, PT 03/17/24 0901 If you are in agreement with this Plan of Care, please return a signed and dated copy. I have reviewed this Plan of Care and certify that the skilled therapy services above are required to meet the patient?s needs. Physician Signature Date Printed Name and Credentials Clinical Instructor Signature Printed Name and Credentials
--- NOTE | 2024-03-23 16:55 | PT.OTN ---
Current Diagnoses Bilateral primary osteoarthritis of knee (03/23/24) Iliotibial band syndrome, right leg (03/23/24) Iliotibial band syndrome, left leg (03/23/24) Physical Therapy Treatment Note PT-OP-A Visit Information Start: 01/08/24 17:21 Freq: Status: Active Protocol: Document 03/23/24 13:06 (Rec: 03/23/24 13:48 [id number]) Out-Patient Physical Therapy Visit Information Visit Information Visit Type Treatment Note Visit Note 06/14 Access Code [id number] Visit Start Time 13:04 Visit Stop Time 13:44 Visit Number 11 Number of ELECTRONIC ENGRAVER Visits 1 PT-OP-B Current Condition Start: 01/08/24 17:21 Freq: Status: Active Protocol: Document 01/12/24 14:36 [facility] (Rec: 01/12/24 15:20 [facility] [id number]) Current Condition History of Current Condition Onset Date a couple years Current Complaints B knee and cheung pain and quad pain. weakness History of Current Condition Pt reports significant lower leg pain from knees down. Notes really hard to get up from ground. Up/down stairs, is very weak and put in rails d/t this. it has been progressively getting worse. When goes to sit down on the toilet, almost falls onto the toilet, gets severe pain in inf quad region. Was on a standard height toilet the other day and was worried he couldn't get up. MOved here in the past couple years and no longer goes to gym. He walks about 1/2 mile in the Am but doesn't hink he could do a brisk walk anymore. He does do work on [employer] in house. Used to do yoga, but doens't think he can do enough bending of knee. does plan to try class starting at the end of jan. quick drinking alcohol and coffee and that improved heart palpatations. pt reports some arthritis in knees and meniscus wear down. denies burning, nubmness or tingling. Pt reports has back pain when first get up in the AM but generally, it goes away. only occ if he moves wrong he gets a little pain but it doesn't last. Pt rides his bike but only twice a week and just a mile to get into town. Uses an electric bike. does line dance 1x/week but has to be careful w/turning as it can make knees hurt. still gets 10k step a day around the house when doing work around house. Treatment Goals Patient/Caregiver Goals find exercise to help the best ; be able to get up/down from ground, find ways to dec pain; get back to longer walks, be able to go up/down hills PT-OP-C Subjective Start: 01/08/24 17:21 Freq: Status: Active Protocol: Document 03/23/24 13:06 (Rec: 03/23/24 13:48 [id number]) OP-PT Subjective Patient Comments Patient Comments Pt reports sore after last session, a little less pain. Today pt reorts wouldn't say pain, just a discomfort in knees from being sore. PT-OP-D Balance Start: 01/08/24 17:21 Freq: Status: Active Protocol: Document 01/12/24 14:36 [facility] (Rec: 01/12/24 15:20 [facility] [id number]) Balance Tests Single Limb Standing Single Limb- Right 9 sec w/significant UE movement Single Limb- Left 7 sec w/significant UE movement PT-OP-E Functional Tests Start: 01/08/24 17:21 Freq: Status: Active Protocol: Document 01/12/24 14:36 [facility] (Rec: 01/12/24 15:20 [facility] [id number]) Functional Tests 30 Second Sit to Stand Test Score 11 Five Times Sit to Stand Test Score 13 sec PT-OP-G Mobility & Gait Start: 01/08/24 17:21 Freq: Status: Active Protocol: Document 01/12/24 14:36 [facility] (Rec: 01/12/24 15:20 [facility] [id number]) OP Gait Assessment Comments Gait Comments some add of LLE when amb, lat shear of hips when WB PT-OP-J Posture/Palpation/Skin Start: 01/08/24 17:21 Freq: Status: Active Protocol: Document 03/17/24 08:12 [facility] (Rec: 03/17/24 09:01 [facility] [id number]) Posture Evaluation [place] Postural Classification System [place] Postural Classifications Posterior/Anterior Lumbar Protective Mechanism Left AP 2 Lumbar Protective Mechanism Right AP 2 Lumbar Protective Mechanism Left PA 3 Lumbar Protective Mechanism Right PA 3 PT-OP-K Range of Motion Start: 01/08/24 17:21 Freq: Status: Active Protocol: Document 01/12/24 14:36 [facility] (Rec: 01/12/24 15:20 [facility] [id number]) Knee Goniometric Range of Motion Knee Right Flexion Active (degrees) 130 Extension Active (degrees) 2 Comments discomfort in cheung w/flex Left Flexion Active (degrees) 134 Hyper-Extension Active 1 Ankle and Foot Goniometric Range of Motion Ankle and Foot ROM Limitations Comments Knee to wall: 2.25 in L 3.75 in R PT-OP-L Special Tests Start: 01/08/24 17:21 Freq: Status: Active Protocol: Document 01/12/24 14:36 [facility] (Rec: 01/12/24 15:20 [facility] [id number]) Special Tests Knee Special Tests Wale Comments B quad tightness ; notes ant thigh pain w/knee to chest SLR Comments WNL Slump Comments neg B PT-OP-M Strength Start: 01/08/24 17:21 Freq: Status: Active Protocol: Document 03/17/24 08:12 [facility] (Rec: 03/17/24 09:01 [facility] [id number]) Hip Strength Hip Manual Muscle Testing Right Flexion (L2) 4- Good- Extension (S1) 4 Good Abduction 4 Good Adduction 5 Normal External Rotation 5 Normal Internal Rotation 5 Normal Left Flexion (L2) 4- Good- Extension (S1) 4+ Good+ Abduction 4- Good- Adduction 5 Normal External Rotation 5 Normal Internal Rotation 5 Normal Knee Strength Knee Manual Muscle Testing Right Flexion (S2) 5 Normal Extension (L3) 5 Normal Left Flexion (S2) 5 Normal Extension (L3) 5 Normal Ankle/Foot Strength Ankle and Foot Manual Muscle Testing Right Dorsiflexion (L4) 5 Normal Plantarflexion (S1) 5 Normal Inversion 4+ Good+ Eversion (S1) 5 Normal Left Dorsiflexion (L4) 5 Normal Plantarflexion (S1) 5 Normal Inversion 4+ Good+ Eversion (S1) 5 Normal Comments 20 heel raises B PT-OP-Q Treatments Start: 01/08/24 17:21 Freq: Status: Active Protocol: Document 03/23/24 13:06 [facility] (Rec: 03/23/24 13:48 [id number]) Gym Equipment Shuttle Recovery unilateral Details 62# Reps/Time 10 ea LE bilateral Resistance 100# Reps/Time 2x15 Therapeutic Exercises Standing Exercises step ups Standing Exercise Name w/alt july, side step ups 4 trialed 6 Side bilateral Equipment Used 8 in Reps/Minutes 15 Comments cues TKE SL Standing Exercise Name 3 pt tap (fwd, back, lat) Side bilateral Reps/Minutes 10 ea lunges Standing Exercise Name 1. stationary fwd 2. lat Side bilateral Reps/Minutes 10 Comments BUE support prn for balance, cued for LE alignment mini squat Standing Exercise Name tap to chair Side bilateral Equipment Used 7lbs in each hand Reps/Minutes 2x10 Side Stepping Standing Exercise Name sidestep Side bilateral Resistance L3 at ankles Reps/Minutes 20 ft ea resistance Comments cues trunk stabilization and eccentric control PT-OP-T Assessment and Plan Start: 01/08/24 17:21 Freq: Status: Active Protocol: Document 03/23/24 13:06 (Rec: 03/23/24 13:48 [id number]) Physical Therapy Assessment Goals activities Short Term Goal (STG) Pt will be able to get up/down from ground w/o inc pain or significant difficulty 02/11-still uses UEs 03/17-can but is challenging STG Duration 04/18 Intermediate Goal (LTG) Pt will be able to go for longer walks (>1.5 mile) that include hills w/o inc pain greater tahn 06/14 02/11-1/2 mile walks max w/ hills recently 07/12 03/17-1-2 miles piror to trip (needs to return) LTG Duration 1/ balance Short Term Goal (STG) Pt will be able to do SLS for at least 10 sec B to show improved stability STG Duration achieved 01/28 Intermediate Goal (LTG) Pt will be able to do SLS for at least 20 sec B to show improved stability LTG Duration achieved 01/28 strength Short Term Goal (STG) Pt will be indep w/HEP 02/11-working on inc consistency-pt feels better after doing STG Duration achieved but advancing as able Computing Architect Goal (LTG) Pt will score at least 3/5 LPM all planes and at least 4+/5 with all BLE MMT to show improved strength and stability to may daily activities easier 02/11-improved 03/17-improved LTG Duration 05/07 Assessment Summary Assessment Session focused on strengthening exercises this session, pt reports soreness from worked muscles throughout session, though denies increase in pain. Pt tolerated session well, challenged with balance during NBOS/SLS strengthening exercises, requiring occasional HEAD PACKAGER prn. Progressed hip strengthening with lateral side step ups on 4 step this session, trialed in PT only did not issue HEP HO. Educated pt on use of ice pack post PT prn for to assist with discomfort from mm soreness. Physical Therapy Plan Frequency and Duration Frequency of Treatment 1x/wk Duration of treatment (weeks) 8 Plan of Care Start Date 03/17/24 Plan of Care End Date 05/20/24 Therapeutic Interventions Therapeutic Interventions Balance Training,Home Exercise Program,Joint Mobilizations, Manual Therapy,Neuromuscular Re-education,Patient/Caregiver Education,Self-Care/Home Management,Soft Tissue Mobilization,Taping, Therapeutic Activities, Therapeutic Exercises Modalities Cold Pack/Ice Massage,Electric Stimulation,Hot Packs, Infrared Therapy,Ultrasound Next Visit Focus/Plan Next Note Type Treatment Note Next Visit Plan advance balance, inc wt for leg press, bosu exercises for strength/balance ,knee mobs/ STM
--- NOTE | 2024-04-07 12:10 | PT.OTN ---
Current Diagnoses Bilateral primary osteoarthritis of knee (04/07/24) Iliotibial band syndrome, right leg (04/07/24) Iliotibial band syndrome, left leg (04/07/24) Physical Therapy Treatment Note PT-OP-A Visit Information Start: 01/08/24 17:21 Freq: Status: Active Protocol: Document 04/07/24 11:32 SP (Rec: 04/07/24 12:20 SP [id number]) Out-Patient Physical Therapy Visit Information Visit Information Visit Type Treatment Note Visit Note 07/12 Visit Start Time 11:32 Visit Stop Time 12:10 Visit Number 11 (07/12 with PN) Number of COST ESTIMATING CLERK Visits 2 PT-OP-B Current Condition Start: 01/08/24 17:21 Freq: Status: Active Protocol: Document 01/12/24 14:36 [facility] (Rec: 01/12/24 15:20 [facility] [id number]) Current Condition History of Current Condition Onset Date a couple years Current Complaints B knee and cheung pain and quad pain. weakness History of Current Condition Pt reports significant lower leg pain from knees down. Notes really hard to get up from ground. Up/down stairs, is very weak and put in rails d/t this. it has been progressively getting worse. When goes to sit down on the toilet, almost falls onto the toilet, gets severe pain in inf quad region. Was on a standard height toilet the other day and was worried he couldn't get up. MOved here in the past couple years and no longer goes to gym. He walks about 1/2 mile in the Am but doesn't hink he could do a brisk walk anymore. He does do work on [employer] in house. Used to do yoga, but doens't think he can do enough bending of knee. does plan to try class starting at the end of jan. quick drinking alcohol and coffee and that improved heart palpatations. pt reports some arthritis in knees and meniscus wear down. denies burning, nubmness or tingling. Pt reports has back pain when first get up in the AM but generally, it goes away. only occ if he moves wrong he gets a little pain but it doesn't last. Pt rides his bike but only twice a week and just a mile to get into town. Uses an electric bike. does line dance 1x/week but has to be careful w/turning as it can make knees hurt. still gets 10k step a day around the house when doing work around house. Treatment Goals Patient/Caregiver Goals find exercise to help the best ; be able to get up/down from ground, find ways to dec pain; get back to longer walks, be able to go up/down hills PT-OP-C Subjective Start: 01/08/24 17:21 Freq: Status: Active Protocol: Document 04/07/24 11:32 SP (Rec: 04/07/24 12:20 SP [id number]) OP-PT Subjective Patient Comments Patient Comments Pt reports sometimes gets radicular pain down L thigh doing up and down stairs and goes away when done. He is compliant with HEP, using pillow in chair right now for success STS. PT-OP-D Balance Start: 01/08/24 17:21 Freq: Status: Active Protocol: Document 01/12/24 14:36 [facility] (Rec: 01/12/24 15:20 [facility] [id number]) Balance Tests Single Limb Standing Single Limb- Right 9 sec w/significant UE movement Single Limb- Left 7 sec w/significant UE movement PT-OP-E Functional Tests Start: 01/08/24 17:21 Freq: Status: Active Protocol: Document 01/12/24 14:36 [facility] (Rec: 01/12/24 15:20 [facility] [id number]) Functional Tests 30 Second Sit to Stand Test Score 11 Five Times Sit to Stand Test Score 13 sec PT-OP-G Mobility & Gait Start: 01/08/24 17:21 Freq: Status: Active Protocol: Document 01/12/24 14:36 [facility] (Rec: 01/12/24 15:20 [facility] [id number]) OP Gait Assessment Comments Gait Comments some add of LLE when amb, lat shear of hips when WB PT-OP-J Posture/Palpation/Skin Start: 01/08/24 17:21 Freq: Status: Active Protocol: Document 03/17/24 08:12 [facility] (Rec: 03/17/24 09:01 [facility] [id number]) Posture Evaluation [place] Postural Classification System [place] Postural Classifications Posterior/Anterior Lumbar Protective Mechanism Left AP 2 Lumbar Protective Mechanism Right AP 2 Lumbar Protective Mechanism Left PA 3 Lumbar Protective Mechanism Right PA 3 PT-OP-K Range of Motion Start: 01/08/24 17:21 Freq: Status: Active Protocol: Document 01/12/24 14:36 [facility] (Rec: 01/12/24 15:20 [facility] [id number]) Knee Goniometric Range of Motion Knee Right Flexion Active (degrees) 130 Extension Active (degrees) 2 Comments discomfort in cheung w/flex Left Flexion Active (degrees) 134 Hyper-Extension Active 1 Ankle and Foot Goniometric Range of Motion Ankle and Foot ROM Limitations Comments Knee to wall: 2.25 in L 3.75 in R PT-OP-L Special Tests Start: 01/08/24 17:21 Freq: Status: Active Protocol: Document 01/12/24 14:36 [facility] (Rec: 01/12/24 15:20 [facility] [id number]) Special Tests Knee Special Tests Wale Comments B quad tightness ; notes ant thigh pain w/knee to chest SLR Comments WNL Slump Comments neg B PT-OP-M Strength Start: 01/08/24 17:21 Freq: Status: Active Protocol: Document 03/17/24 08:12 [facility] (Rec: 03/17/24 09:01 [facility] [id number]) Hip Strength Hip Manual Muscle Testing Right Flexion (L2) 4- Good- Extension (S1) 4 Good Abduction 4 Good Adduction 5 Normal External Rotation 5 Normal Internal Rotation 5 Normal Left Flexion (L2) 4- Good- Extension (S1) 4+ Good+ Abduction 4- Good- Adduction 5 Normal External Rotation 5 Normal Internal Rotation 5 Normal Knee Strength Knee Manual Muscle Testing Right Flexion (S2) 5 Normal Extension (L3) 5 Normal Left Flexion (S2) 5 Normal Extension (L3) 5 Normal Ankle/Foot Strength Ankle and Foot Manual Muscle Testing Right Dorsiflexion (L4) 5 Normal Plantarflexion (S1) 5 Normal Inversion 4+ Good+ Eversion (S1) 5 Normal Left Dorsiflexion (L4) 5 Normal Plantarflexion (S1) 5 Normal Inversion 4+ Good+ Eversion (S1) 5 Normal Comments 20 heel raises B PT-OP-Q Treatments Start: 01/08/24 17:21 Freq: Status: Active Protocol: Document 04/07/24 11:32 SP (Rec: 04/07/24 12:20 SP [id number]) Gym Equipment Shuttle Recovery unilateral Details weaker on L than R Resistance 62# (2 navy bands) Reps/Time 20 ea LE bilateral Resistance 100#> 112# (4 navy bands) Reps/Time 10 reps warm up, x15 112# Therapeutic Exercises Supine Exercises bridge Supine Exercise Name TA sustained hold w/march Side bilateral Reps/Minutes 20 reps alternating BLEs Comments occ cues for level pelvic, improved with reps isometric Supine Exercise Name DL flex w/DF Side bilateral Reps/Minutes 30 secx2 Comments good core contraction, pnfree hamstring stretch Supine Exercise Name HEP Side bilateral Reps/Minutes 60 sec X 1 each LE Comments /c AP for sciatic nerve glide assist reduction occ pain down L leg on stair Sitting Exercises LAQ Sitting Exercise Name added to HEP declined HO Side bilateral Resistance TB #2 over ankle and under opp foot Reps/Minutes x20 reps each side Comments good quad effort, cued keep opp foot on floor. Standing Exercises step ups Standing Exercise Name fwd & lateral- added to HEP declined HO Side bilateral Resistance (7.5 steps home) Equipment Used 8step, light contact during LLE, no UE support RLE Reps/Minutes 10 Comments cues TKE and glut drive full stand lunges Standing Exercise Name 1. stationary fwd 2. stationary lat Side bilateral Equipment Used PRN UE support, front mirror Reps/Minutes 10 each LE, Lateral foot on BOSU Comments increased stability with increased RON Manual Therapy Treatment Consent Patient gave verbal consent for manual Yes treatment Soft Tissue Mobilization STM Body Location R>L tension: glut & Pirformis & HS Mobilization Type Rolling,Strumming,Other Intensity/Depth Moderate Body Position Prone Comments MWM hip IR/ER PT-OP-T Assessment and Plan Start: 01/08/24 17:21 Freq: Status: Active Protocol: Document 04/07/24 11:32 SP (Rec: 04/07/24 12:20 SP [id number]) Physical Therapy Assessment Goals activities Short Term Goal (STG) Pt will be able to get up/down from ground w/o inc pain or significant difficulty 02/11-still uses UEs 03/17-can but is challenging STG Duration 04/18 Prison Goal (LTG) Pt will be able to go for longer walks (>1.5 mile) that include hills w/o inc pain greater tahn 06/14 02/11-1/2 mile walks max w/ hills recently 07/12 03/17-1-2 miles piror to trip (needs to return) LTG Duration 05/06 balance Short Term Goal (STG) Pt will be able to do SLS for at least 10 sec B to show improved stability STG Duration achieved 01/28 Prison Goal (LTG) Pt will be able to do SLS for at least 20 sec B to show improved stability LTG Duration achieved 01/28 strength Short Term Goal (STG) Pt will be indep w/HEP 02/11-working on inc consistency-pt feels better after doing STG Duration achieved but advancing as able Prison Goal (LTG) Pt will score at least 3/5 LPM all planes and at least 4+/5 with all BLE MMT to show improved strength and stability to may daily activities easier 02/11-improved 03/17-improved LTG Duration 05/07 Assessment Summary Assessment Pt reported increased ROM to R hip post manual. Continued cues for proper form knee and trunk alignment, TKE and glut drive into full extension for carryover LE strength support to allow stair mgt without feeling of buckling. Pt report no knee pain throughout tx, just tiring weakness. He was able to progress resistance on shuttle recovery. Physical Therapy Plan Frequency and Duration Frequency of Treatment 1x/wk Duration of treatment (weeks) 8 Plan of Care Start Date 03/17/24 Plan of Care End Date 05/20/24 Therapeutic Interventions Therapeutic Interventions Balance Training,Home Exercise Program,Joint Mobilizations, Manual Therapy,Neuromuscular Re-education,Patient/Caregiver Education,Self-Care/Home Management,Soft Tissue Mobilization,Taping, Therapeutic Activities, Therapeutic Exercises Modalities Cold Pack/Ice Massage,Electric Stimulation,Hot Packs, Infrared Therapy,Ultrasound Next Visit Focus/Plan Next Note Type Treatment Note Next Visit Plan check if need add more appts next tx. Next BOSU step ups, balance, add fwd step downs. POC: advance balance, inc wt for leg press, bosu exercises for strength/balance ,knee mobs/STM
--- NOTE | 2024-04-14 12:19 | PT.OTN ---
Current Diagnoses Bilateral primary osteoarthritis of knee (04/14/24) Iliotibial band syndrome, right leg (04/14/24) Iliotibial band syndrome, left leg (04/14/24) Physical Therapy Treatment Note PT-OP-A Visit Information Start: 01/08/24 17:21 Freq: Status: Active Protocol: Document 04/14/24 11:37 SP (Rec: 04/14/24 12:35 SP [id number]) Out-Patient Physical Therapy Visit Information Visit Information Visit Type Treatment Note Visit Note 08/12 Visit Start Time 11:37 Visit Stop Time 12:19 Visit Number 11 (08/12 with PN) Number of SWEEP MOLDER Visits 3 PT-OP-B Current Condition Start: 01/08/24 17:21 Freq: Status: Active Protocol: Document 01/12/24 14:36 [facility] (Rec: 01/12/24 15:20 [facility] [id number]) Current Condition History of Current Condition Onset Date a couple years Current Complaints B knee and cheung pain and quad pain. weakness History of Current Condition Pt reports significant lower leg pain from knees down. Notes really hard to get up from ground. Up/down stairs, is very weak and put in rails d/t this. it has been progressively getting worse. When goes to sit down on the toilet, almost falls onto the toilet, gets severe pain in inf quad region. Was on a standard height toilet the other day and was worried he couldn't get up. MOved here in the past couple years and no longer goes to gym. He walks about 1/2 mile in the Am but doesn't hink he could do a brisk walk anymore. He does do work on [email or web address] in house. Used to do yoga, but doens't think he can do enough bending of knee. does plan to try class starting at the end of jan. quick drinking alcohol and coffee and that improved heart palpatations. pt reports some arthritis in knees and meniscus wear down. denies burning, nubmness or tingling. Pt reports has back pain when first get up in the AM but generally, it goes away. only occ if he moves wrong he gets a little pain but it doesn't last. Pt rides his bike but only twice a week and just a mile to get into town. Uses an electric bike. does line dance 1x/week but has to be careful w/turning as it can make knees hurt. still gets 10k step a day around the house when doing work around house. Treatment Goals Patient/Caregiver Goals find exercise to help the best ; be able to get up/down from ground, find ways to dec pain; get back to longer walks, be able to go up/down hills PT-OP-C Subjective Start: 01/08/24 17:21 Freq: Status: Active Protocol: Document 04/14/24 11:37 SP (Rec: 04/14/24 12:35 SP [id number]) OP-PT Subjective Patient Comments Patient Comments Pt reports is compliant with some HEP, not as much as kurtler be. He reports has 1 more appt, walking with longer strides helping pain reduction/go away. Pain reduction with his strengthening, still weakness but feel progressing and can continue own. PT-OP-D Balance Start: 01/08/24 17:21 Freq: Status: Active Protocol: Document 01/12/24 14:36 [facility] (Rec: 01/12/24 15:20 [facility] [id number]) Balance Tests Single Limb Standing Single Limb- Right 9 sec w/significant UE movement Single Limb- Left 7 sec w/significant UE movement PT-OP-E Functional Tests Start: 01/08/24 17:21 Freq: Status: Active Protocol: Document 01/12/24 14:36 [facility] (Rec: 01/12/24 15:20 [facility] [id number]) Functional Tests 30 Second Sit to Stand Test Score 11 Five Times Sit to Stand Test Score 13 sec PT-OP-G Mobility & Gait Start: 01/08/24 17:21 Freq: Status: Active Protocol: Document 01/12/24 14:36 [facility] (Rec: 01/12/24 15:20 [facility] [id number]) OP Gait Assessment Comments Gait Comments some add of LLE when amb, lat shear of hips when WB PT-OP-J Posture/Palpation/Skin Start: 01/08/24 17:21 Freq: Status: Active Protocol: Document 03/17/24 08:12 [facility] (Rec: 03/17/24 09:01 [facility] [id number]) Posture Evaluation [place] Postural Classification System [place] Postural Classifications Posterior/Anterior Lumbar Protective Mechanism Left AP 2 Lumbar Protective Mechanism Right AP 2 Lumbar Protective Mechanism Left PA 3 Lumbar Protective Mechanism Right PA 3 PT-OP-K Range of Motion Start: 01/08/24 17:21 Freq: Status: Active Protocol: Document 01/12/24 14:36 [facility] (Rec: 01/12/24 15:20 [facility] [id number]) Knee Goniometric Range of Motion Knee Right Flexion Active (degrees) 130 Extension Active (degrees) 2 Comments discomfort in cheung w/flex Left Flexion Active (degrees) 134 Hyper-Extension Active 1 Ankle and Foot Goniometric Range of Motion Ankle and Foot ROM Limitations Comments Knee to wall: 2.25 in L 3.75 in R PT-OP-L Special Tests Start: 01/08/24 17:21 Freq: Status: Active Protocol: Document 01/12/24 14:36 [facility] (Rec: 01/12/24 15:20 [facility] [id number]) Special Tests Knee Special Tests Wale Comments B quad tightness ; notes ant thigh pain w/knee to chest SLR Comments WNL Slump Comments neg B PT-OP-M Strength Start: 01/08/24 17:21 Freq: Status: Active Protocol: Document 03/17/24 08:12 [facility] (Rec: 03/17/24 09:01 [facility] [id number]) Hip Strength Hip Manual Muscle Testing Right Flexion (L2) 4- Good- Extension (S1) 4 Good Abduction 4 Good Adduction 5 Normal External Rotation 5 Normal Internal Rotation 5 Normal Left Flexion (L2) 4- Good- Extension (S1) 4+ Good+ Abduction 4- Good- Adduction 5 Normal External Rotation 5 Normal Internal Rotation 5 Normal Knee Strength Knee Manual Muscle Testing Right Flexion (S2) 5 Normal Extension (L3) 5 Normal Left Flexion (S2) 5 Normal Extension (L3) 5 Normal Ankle/Foot Strength Ankle and Foot Manual Muscle Testing Right Dorsiflexion (L4) 5 Normal Plantarflexion (S1) 5 Normal Inversion 4+ Good+ Eversion (S1) 5 Normal Left Dorsiflexion (L4) 5 Normal Plantarflexion (S1) 5 Normal Inversion 4+ Good+ Eversion (S1) 5 Normal Comments 20 heel raises B PT-OP-Q Treatments Start: 01/08/24 17:21 Freq: Status: Active Protocol: Document 04/14/24 11:37 SP (Rec: 04/14/24 12:35 SP [id number]) Gym Equipment Shuttle Recovery unilateral Details cued each knee vier lateral midline see medial ankles through range Resistance 62# (2 navy bands) Reps/Time 20 ea LE- L little weaker than R bilateral Details TB #2 teal band at thighs, cued not lock knee Resistance 112# (4 navy bands) Reps/Time x15 Therapeutic Exercises Sitting Exercises LAQ Sitting Exercise Name review for strengthening Side bilateral Resistance TB #2 over ankle and under opp foot Reps/Minutes x20 reps each side Comments good quad effort, cued keep opp foot on floor, scoot back femur full suppt. Standing Exercises fwd step down Standing Exercise Name trialed in PT- revisit next tx Side bilateral Resistance AROM, prn rail Equipment Used 4 step>2 book Reps/Minutes 8 reps Comments cued knee lateral midline alignment- challenge L 4 better 2, cuehip hinge Glut med at wall Standing Exercise Name added to HEP with HO Resistance AROM Equipment Used bent knee foot behind stance leg calf Reps/Minutes x5 reps before work out tiring burn feel Comments cued not rotate trunk, soft knee stationary, lift/lower hip at wall- good step ups Standing Exercise Name fwd & lateral-reviewed HEP Side bilateral Resistance (7.5 steps home) Equipment Used 8step, light contact during LLE, no UE support RLE Reps/Minutes 10 Comments cues TKE and glut drive full stand, knee lateral mid alignment Side Stepping Standing Exercise Name verbal review continue HEP Resistance L3 at ankles Reps/Minutes 20 ft ea resistance Comments cues trunk stabilization and eccentric control Self-Care/Home Management Treatment Education Patient Education Body Mechanics,Joint Protection,Posture,Safety Other Education Time s pent throughout tx knee alignmentl hip hinge and trunk/body mechanics during descending steps and carryover line dancing improved pain reducation/elimination with better understanding all in the details of mobility correction performance. PT-OP-T Assessment and Plan Start: 01/08/24 17:21 Freq: Status: Active Protocol: Document 04/14/24 11:37 SP (Rec: 04/14/24 12:35 SP [id number]) Physical Therapy Assessment Goals activities Short Term Goal (STG) Pt will be able to get up/down from ground w/o inc pain or significant difficulty 02/11-still uses UEs 03/17-can but is challenging STG Duration 04/18 Intermediate Goal (LTG) Pt will be able to go for longer walks (>1.5 mile) that include hills w/o inc pain greater tahn 06/14 02/11-1 mile walks max w/ hills recently 07/12 03/17-1-2 miles piror to trip (needs to return) LTG Duration 1 balance Short Term Goal (STG) Pt will be able to do SLS for at least 10 sec B to show improved stability STG Duration achieved 01/28 Intermediate Goal (LTG) Pt will be able to do SLS for at least 20 sec B to show improved stability LTG Duration achieved 01/28 strength Short Term Goal (STG) Pt will be indep w/HEP 02/11-working on inc consistency-pt feels better after doing STG Duration achieved but advancing as able Intermediate Goal (LTG) Pt will score at least 3/5 LPM all planes and at least 4+/5 with all BLE MMT to show improved strength and stability to may daily activities easier 02/11-improved 03/17-improved LTG Duration 05/07 Assessment Summary Assessment Pt responded well to resisted HEP review, cues for knee alignment cherise and midfoot/heel drive improved glut and hip abd engagement during ther ex. Education provided for mechanics in trunk and knee alignment during ex reduced to elimination of knee pain during ther ex with better understanding of carryover into line dancing and descending stair this tx. Physical Therapy Plan Frequency and Duration Frequency of Treatment 1x/wk Duration of treatment (weeks) 8 Plan of Care Start Date 03/17/24 Plan of Care End Date 05/20/24 Therapeutic Interventions Therapeutic Interventions Balance Training,Home Exercise Program,Joint Mobilizations, Manual Therapy,Neuromuscular Re-education,Patient/Caregiver Education,Self-Care/Home Management,Soft Tissue Mobilization,Taping, Therapeutic Activities, Therapeutic Exercises Modalities Cold Pack/Ice Massage,Electric Stimulation,Hot Packs, Infrared Therapy,Ultrasound Next Visit Focus/Plan Next Note Type Discharge Summary Next Visit Plan Recheck HEP and proper form, knee alignment and how progression into daily and outdoor community ambulation progression. Pt is ready for continue on how own.
--- NOTE | 2024-04-21 12:21 | PT.OTN ---
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 weakness History of Current Condition Pt reports significant lower leg pain from knees down. Notes really hard to get up from ground. Up/down stairs, is very weak and put in rails d/t this. it has been progressively getting worse. When goes to sit down on the toilet, almost falls onto the toilet, gets severe pain in inf quad region. Was on a standard height toilet the other day and was worried he couldn't get up. MOved here in the past couple years and no longer goes to gym. He walks about 1/2 mile in the Am but doesn't hink he could do a brisk walk anymore. He does do work on [employer] in house. Used to do yoga, but doens't think he can do enough bending of knee. does plan to try class starting at the end of jan. quick drinking alcohol and coffee and that improved heart palpatations. pt reports some arthritis in knees and meniscus wear down. denies burning, nubmness or tingling. Pt reports has back pain when first get up in the AM but generally, it goes away. only occ if he moves wrong he gets a little pain but it doesn't last. Pt rides his bike but only twice a week and just a mile to get into town. Uses an electric bike. does line dance 1x/week but has to be careful w/turning as it can make knees hurt. still gets 10k step a day around the house when doing work around house. Treatment Goals Patient/Caregiver Goals find exercise to help the best ; be able to get up/down from ground, find ways to dec pain; get back to longer walks, be able to go up/down hills PT-OP-C Subjective Start: 01/08/24 17:21 Freq: Status: Active Protocol: Document 04/21/24 11:28 [facility] (Rec: 04/21/24 12:21 [facility] [id number]) OP-PT Subjective Patient Comments Patient Comments Pt doing well with long walks. Does exercises throughout day when does them PT-OP-D Balance Start: 01/08/24 17:21 Freq: Status: Active Protocol: Document 01/12/24 14:36 [facility] (Rec: 01/12/24 15:20 [facility] [id number]) Balance Tests Single Limb Standing Single Limb- Right 9 sec w/significant UE movement Single Limb- Left 7 sec w/significant UE movement PT-OP-E Functional Tests Start: 01/08/24 17:21 Freq: Status: Active Protocol: Document 01/12/24 14:36 [facility] (Rec: 01/12/24 15:20 [facility] [id number]) Functional Tests 30 Second Sit to Stand Test Score 11 Five Times Sit to Stand Test Score 13 sec PT-OP-G Mobility & Gait Start: 01/08/24 17:21 Freq: Status: Active Protocol: Document 01/12/24 14:36 [facility] (Rec: 01/12/24 15:20 [facility] [id number]) OP Gait Assessment Comments Gait Comments some add of LLE when amb, lat shear of hips when WB PT-OP-J Posture/Palpation/Skin Start: 01/08/24 17:21 Freq: Status: Active Protocol: Document 04/21/24 11:28 [facility] (Rec: 04/21/24 12:21 [facility] [id number]) Posture Evaluation [place] Postural Classification System Lumbar Protective Mechanism Left AP 3 Lumbar Protective Mechanism Right AP 4 Lumbar Protective Mechanism Left PA 4 Lumbar Protective Mechanism Right PA 3 PT-OP-K Range of Motion Start: 01/08/24 17:21 Freq: Status: Active Protocol: Document 01/12/24 14:36 [facility] (Rec: 01/12/24 15:20 [facility] [id number]) Knee Goniometric Range of Motion Knee Right Flexion Active (degrees) 130 Extension Active (degrees) 2 Comments discomfort in cheung w/flex Left Flexion Active (degrees) 134 Hyper-Extension Active 1 Ankle and Foot Goniometric Range of Motion Ankle and Foot ROM Limitations Comments Knee to wall: 2.25 in L 3.75 in R PT-OP-L Special Tests Start: 01/08/24 17:21 Freq: Status: Active Protocol: Document 01/12/24 14:36 [facility] (Rec: 01/12/24 15:20 [facility] [id number]) Special Tests Knee Special Tests Wale Comments B quad tightness ; notes ant thigh pain w/knee to chest SLR Comments WNL Slump Comments neg B PT-OP-M Strength Start: 01/08/24 17:21 Freq: Status: Active Protocol: Document 04/21/24 11:28 [facility] (Rec: 04/21/24 12:21 [facility] [id number]) Hip Strength Hip Manual Muscle Testing Right Flexion (L2) 4+ Good+ Extension (S1) 4+ Good+ Abduction 5 Normal Adduction 5 Normal External Rotation 5 Normal Internal Rotation 5 Normal Left Flexion (L2) 4+ Good+ Extension (S1) 5 Normal Abduction 4+ Good+ Adduction 5 Normal External Rotation 5 Normal Internal Rotation 5 Normal Knee Strength Knee Manual Muscle Testing Right Flexion (S2) 5 Normal Extension (L3) 5 Normal Left Flexion (S2) 5 Normal Extension (L3) 5 Normal Ankle/Foot Strength Ankle and Foot Manual Muscle Testing Right Dorsiflexion (L4) 5 Normal Plantarflexion (S1) 5 Normal Inversion 5 Normal Eversion (S1) 5 Normal Left Dorsiflexion (L4) 5 Normal Plantarflexion (S1) 5 Normal Inversion 5 Normal Eversion (S1) 5 Normal Comments 20 heel raises B PT-OP-Q Treatments Start: 01/08/24 17:21 Freq: Status: Active Protocol: Document 04/21/24 11:28 [facility] (Rec: 04/21/24 12:21 [facility] [id number]) Gym Equipment Shuttle Balance Red clips Details lev mcmahan Comments fwd & side: WBOS & NBOS fwd: staggered stance B Therapeutic Exercises Standing Exercises step ups Standing Exercise Name fwd & lateral-reviewed HEP Side bilateral Resistance (7.5 steps home) Equipment Used 8step, light contact during LLE, no UE support RLE Reps/Minutes 12 Comments cues TKE and glut drive full stand, knee lateral mid alignment lunges Standing Exercise Name 1. stationary fwd 2. stationary lat Side bilateral Equipment Used PRN UE support, Reps/Minutes 10 ea mini squat Standing Exercise Name tap to chair Side bilateral Equipment Used 7lbs in each hand Reps/Minutes 15 Side Stepping Standing Exercise Name mini squat Resistance L3 at ankles Reps/Minutes 2x[address] Other Exercises isometrics Other Exercise Name B MMT and LPM Neuro Re-Education Treatment Balance Activities BOSU Comments fwd/back tips and lat tips x12 ea Self-Care/Home Management Treatment Education Other Education sidesteps, squats, walking, sidestep ups PT-OP-T Assessment and Plan Start: 01/08/24 17:21 Freq: Status: Active Protocol: Document 04/21/24 11:28 [facility] (Rec: 04/21/24 12:21 [facility] [id number]) Physical Therapy Assessment Goals activities Short Term Goal (STG) Pt will be able to get up/down from ground w/o inc pain or significant difficulty 02/11-still uses UEs 03/17-can but is challenging STG Duration achieved 04/21 Correction Goal (LTG) Pt will be able to go for longer walks (>1.5 mile) that include hills w/o inc pain greater tahn 06/14 02/11-1/2 mile walks max w/ hills recently 07/12 03/17-1-2 miles piror to trip (needs to return) LTG Duration achieved 04/21 balance Short Term Goal (STG) Pt will be able to do SLS for at least 10 sec B to show improved stability STG Duration achieved 01/28 Direct Selling Counselor Goal (LTG) Pt will be able to do SLS for at least 20 sec B to show improved stability LTG Duration achieved 01/28 strength Short Term Goal (STG) Pt will be indep w/HEP 02/11-working on inc consistency-pt feels better after doing STG Duration achieved but advancing as able Direct Selling Counselor Goal (LTG) Pt will score at least 3/5 LPM all planes and at least 4+/5 with all BLE MMT to show improved strength and stability to may daily activities easier 02/11-improved 03/17-improved LTG Duration achieved 04/21 Assessment Summary Assessment Pt has made excellent progress w/PT and is indep w/HEP and has met all goals at this time . 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 Physical Therapy Plan Discharge Physical Therapy Discharge Reasons Goals Met
== END 2024-04-29 09:00 | disposition home or self-care (01) ==
LOC: PHYS 11:30
PROVIDERS: Family Provider Family Medicine; PCP Family Medicine; Referring Provider Physician Assistant; Visit Provider Physician Assistant
DX: M17.0 Bilateral primary osteoarthritis of knee (principal); M76.31 Iliotibial band syndrome, right leg; M76.32 Iliotibial band syndrome, left leg
CPT/HCPCS: 97110; 97112; 97140; 97162; 97535

== ENCOUNTER → 2025-03-04 13:19 | Outpatient (CLI) | payer MEDICARE, SELFPAY ==
--- NOTE | 2025-03-04 13:20 | DI.RAD.S_ITS ---
PROCEDURE: XR CHEST 2V INDICATIONS: chronic cough TECHNIQUE: 2 views of the chest were acquired. COMPARISON: [facility], CR, XR CHEST 2V, 09/11/2021, 11:19. [facility], CR, XR CHEST 2V, 10/15/2020, 12:36. FINDINGS: Surgical changes and devices: None. Lungs and pleura: Lungs are clear. No pleural effusions or pneumothorax. Mediastinum: Mediastinal contours are normal. Heart size is normal. Bones and chest wall: No suspicious bony abnormalities. Soft tissues appear unremarkable. IMPRESSION: No acute cardiopulmonary abnormality is seen. Dictated by: Jonel Forde M.D. on 03/05/2025 at 14:35 Approved by: Jonel Forde M.D. on 03/05/2025 at 14:35
== END ==
PROVIDERS: Family Provider Family Medicine; PCP Family Medicine; Referring Provider Family Medicine; Visit Provider Family Medicine
DX: K21.9 Gastro-esophageal reflux disease without esophagitis (principal); K22.719 Barrett's esophagus with dysplasia, unspecified; R05.3 Chronic cough
CPT/HCPCS: 71046

== ENCOUNTER → 2025-04-04 14:33 | Outpatient (CLI) | payer MEDICARE, SELFPAY ==
[2025-04-04 15:23] LABS: Add Manual Diff / Slide Review NO; Hematocrit 35.3 % (41-53); Hemoglobin 11.8 g/dL (13.5-17.5); Lymphocytes Absolute Auto 1400 /uL (1100-4500); Mean Corpuscular HGB Conc 33.5 % (30-36); Mean Corpuscular Hemoglobin 30.7 PG (26-34); Mean Corpuscular Volume 91.7 fL (80-100); Platelet Count 145 X10^3/uL (150-400)
[2025-04-04 15:41] LABS: Alanine Aminotransferase 23 IU/L (<50); Albumin 3.9 g/dL (3.5-5.0); Albumin Globulin Ratio 1.6 (1.0-2.8); Alkaline Phosphatase 60 U/L (38-126); Blood Urea Nitrogen 14 mg/dL (9-20); Calcium 9.3 mg/dL (8.4-10.2); Carbon Dioxide 29 mmol/L (22-32); Chloride 103 mmol/L (98-107); Cholesterol 131 mg/dL (140-199); Estimated Glomerular Filt Rate > 60 mL/min (>60); Globulin 2.4 g/dL (1.7-4.1); Glucose 109 mg/dL (70-99); HDL Cholesterol 68 mg/dL (40-60); HEMOLYSIS < 15 (0-50); Potassium 4.1 mmol/L (3.4-5.1); Sodium 136 mmol/L (137-145); Total Protein 6.3 g/dL (6.3-8.2); Triglycerides 87 mg/dL (35-150)
[2025-04-04 16:13] LABS: TSH w/ Reflex to FT4 1.28 uIU/mL (0.47-4.68)
[2025-04-04 16:16] LABS: Ferritin 9 ng/mL (18-464)
== END ==
PROVIDERS: Family Provider Family Medicine; PCP Family Medicine; Referring Provider Family Medicine; Visit Provider Family Medicine
DX: Z12.5 Encounter for screening for malignant neoplasm of prostate (principal); I10 Essential (primary) hypertension; D50.9 Iron deficiency anemia, unspecified; E78.5 Hyperlipidemia, unspecified
CPT/HCPCS: 36415; 80053; 80061; 82172; 82728; 84443; 85025; G0103

== ENCOUNTER → 2025-04-19 10:09 | Outpatient (CLI) | payer MEDICARE, SELFPAY ==
--- NOTE | 2025-04-19 10:11 | DI.ECHO.S_ITS ---
[place] +---------+ Hospital : : [id number] : [place] : : [id number] : : Phone: [phone] Echocardiogram Report + + :Name: JOSH BURCIAGA Study Date: 04/19/2025 Height: 71 in : :Hospital ReadingLocation: Weight: 168 lb : : Gender: Male BSA: 2.0 m2 : :: 1945 Age: 80 yrs BP: 155/80 mmHg: :Reason For Study: New systolic murmur : :Ordering Physician: NICOLÁS, : :ESEQUIEL Performed By: Ronak Dennis : :Referring: ESEQUIEL MONZON : + + Interpretation Summary - The left ventricular contractility is normal. Estimated ejection fraction is greater than 55% with no segmental wall motion abnormalities. No LVH. Normal diastolic function. - The right ventricular contractility is normal. - All cardiac chambers are of normal size. - Mild aortic insufficiency. - Mild tricuspid regurgitation with estimated pulmonary systolic artery pressures of 36 mmHg. - Trace to mild pulmonic insufficiency. - No obvious intracardiac shunts. - No obvious intracardiac masses nor thrombi. - No hemodynamically significant pericardial effusion. - Normal right-sided filling pressures. Conclusion: Normal biventricular function with trace to mild valvular insufficiencies. When compared with previous echocardiogram, no significant changes in the degree of valvular insufficiencies noted but there is improvement of the diastolic function. Procedure: A two-dimensional transthoracic echocardiogram with color flow and Doppler was performed. The study quality was technically adequate. Comparison is made with the echocardiogram of 02/22/2022. The heart rate ranged between 58-63 bpm during the study. Left Ventricle: The left ventricle is normal in size and wall thickness. Left ventricular systolic function is normal. The ejection fraction is estimated to be 55-60%. There are no focal wall motion abnormalities. Normal diastolic function. Right Ventricle: The right ventricle is normal in size and function. Atria: The left atrial size is normal. Right atrial size is normal. There is no Doppler evidence for an interatrial shunt. Mitral Valve: The mitral valve leaflets appear to open well. There is no mitral valve stenosis. There is trace mitral regurgitation. Aortic Valve: The aortic valve is trileaflet. The aortic valve opens well. There is mild aortic valve sclerosis. There is no aortic valve stenosis. There is mild aortic regurgitation. Tricuspid Valve: The tricuspid valve is not well visualized, but is grossly normal. There is mild tricuspid regurgitation. The right ventricular systolic pressure is estimated to be at least 36 mmHg based on an estimated right atrial pressure of 8 mm Hg. Pulmonic Valve: The pulmonic valve is not well seen, but is grossly normal. There is mild pulmonic regurgitation. Great Vessels: The aortic root is normal size. There is aortic root sclerosis/calcification. The ascending aorta is normal in size. The aortic arch could not be visualized. The pulmonary artery is normal size. The IVC is dilated (diameter is greater than 2.1 cm) yet it collapses greater than 50% with a sniff. This suggests a right atrial pressure of 8 mm Hg. Pericardium/ Pleura There is no pericardial effusion. MMode/2D Measurements & Calculations LVIDd: 5.0 cm LVOT diam: 2.3 cm LVIDs: 3.5 cm Ao root diam: 3.9 cm FS: 30.7 % asc Aorta Diam: 3.7 cm IVSd: 0.93 cm LVPWd: 0.94 cm LV ramirez. diameter/BSA (cm/m^2): 2.6 LV sys. diameter/BSA (cm/m^2): 1.8 LA A2 area: 20.3 cm2 RA long axis: 5.5 cm LA A4 area: 19.3 cm2 RA area: 15.7 cm2 LA length (vol): 5.6 cm RA vol: 38.0 ml LA vol: 59.0 ml RA : 19.4 ml/m2 LA vol index: 30.1 ml/m2 IVC diam: 1.9 cm RVD1 (basal): 2.3 cm RVD2 (mid): 2.3 cm TAPSE: 1.9 cm Doppler Measurements & Calculations Ao V2 max: 178.5 cm/sec LVOT Max Jesus: 112.8 cm/sec Ao V2 mean: 135.2 cm/sec LV V1 max P.1 mmHg Ao max P.7 mmHg LV V1 VTI: 19.6 cm Ao mean P.8 mmHg JEANNIE(I,D): 2.3 cm2 Ao V2 VTI: 36.0 cm JEANNIE(V,D): 2.7 cm2 sev ratio: 0.55 JEANNIE indexed to BSA (cm^2/m^2): 1.2 AI P1/2t: 639.4 msec AI dec slope: 177.8 cm/sec2 MV E max jesus: 55.1 cm/sec TR max jesus: 262.1 cm/sec MV A max jesus: 72.8 cm/sec TR max P.5 mmHg MV E/A: 0.76 PA V2 max: 112.2 cm/sec Med Peak E' Jesus: 5.2 cm/sec PA V2 mean: 80.6 cm/sec E/E' med: 10.6 PA mean P.9 mmHg Lat Peak E' Jesus: 4.8 cm/sec PA pr(Accel): 37.9 mmHg E/E' lat: 11.6 E/e' average: 11.1 MV dec time: 0.24 sec SV(LVOT): 82.5 ml Qp/Qs (V,Ao): 1.0/6.5 Qp/Qs (V,LVOT): 1.0/1.4 Reading Physician:GIANNA
== END ==
PROVIDERS: Family Provider Family Medicine; PCP Family Medicine; Referring Provider Family Medicine; Visit Provider Family Medicine
DX: I08.2 Rheumatic disorders of both aortic and tricuspid valves (principal); R01.1 Cardiac murmur, unspecified
CPT/HCPCS: 93306